=== PATIENT | male | born 1950 | race Caucasian/White ===

== ENCOUNTER 2023-05-02 21:01 | Inpatient (IN) | payer OTHER, SELFPAY ==
[2023-05-02] VITALS (8 sets, daily range): BP systolic 87–156; BP diastolic 57–105; BMI 22.6; BMI 21.5
[2023-05-02] MEDS: VENTOLIN NEBULES 15 MG INH (17:42)
--- NOTE | 2023-05-02 17:55 | ED.GENMED ---
History of Present Illness
General
Chief Complaint: Breathing Problem
Source: patient
Exam Limitations: none
Time Seen by Provider: 05/02/23 17:24
Nursing documentation reviewed up to this point in time: agreed with
Travel History
Have you had any contact with someone who has COVID-19?: No
Do you have any symptoms of coronavirus? Fever > 100 degrees, chills, cough, shortness of breath, sore throat, loss of taste or smell, muscle aches, or headache?: No
History of Present Illness
History of Present Illness:
Patient is a 72-year-old man with past medical history of COPD who comes in with increased work of breathing and shortness of breath. Patient complains of chest heaviness. He denies leg pain and leg swelling. Patient reports symptoms started
today.
Past History
Past History
ED Past Medical History: CAD, COPD, HTN, Seizures, Other (TIA) and Other (alchoholism has been to [facility] vent-dependent respiratory failure, pneumonia, cirrhosis, pancreatitis, seizures, cirrhosis,cardiomyopathy GI bleed, ambulatory
dysfunction, osteoarthritis, fracture ribs, eczema, impaired vision, anemia); Negative Hypercholesterolemia
ED Past Surgical History: Cardiac (Cardiac stent) and Other (tracheostomy, gastrostomy, bilateral hernia surgery, left middle finger surgery)
Social History
Tobacco: Smoker
Alcohol: Chronic alcoholic
Drug: None
Personal:
Living: with family (lives with daughter)
Employment: Retired
Family History
Family History: CAD
Review of Systems
Review of Systems
Allergies reviewed?: Yes
Other source history: family
All Other Systems: ROS reviewed and negative except as documented in HPI and ROS
Constitutional: Reports no symptoms
EENT: Reports no symptoms
Respiratory: Reports trouble breathing
Cardiac: Reports chest pain
ABD/GI: Reports no symptoms
: Reports no symptoms
Musculoskeletal: Reports no symptoms
Skin: Reports no symptoms
Neurological: Reports no symptoms
Endocrine: Reports no symptoms
Hematologic/Lymphatic: Reports no symptoms
Psychiatric: Reports no symptoms
Phy Exam
Physical Exam
Physical Exam:
Physical Exam
General: Patient appears tachypneic. Speaks in phrases
Neck: supple. no meningeal signs. normal psoterior pharynx
Heart: s1/s2 regular rate and rhythm,
Lungs: Tachypneic. Diminished breath sounds. Wheezing
Abdomen: normal bowel sounds. not tender. no CVAT
Neuro: alert and oriented. no focal neurological deficits
Skin: no rash
Psychiatric: well kept. interactive and cooperative
Extremities: no edema. no calf tenderness. negative homans. good distal pulses
Scores
Heart Failure Risk
Heart Failure Risk Score: Not Applicable
Course
Orders/Labs/Results
Orders:
Orders
05/02/23 Dinner
Cholesterol Lowering
At Your Request: Limited Participation
Cholesterol Lowering: Sodium, 2 Gram
05/02/23 17:24
CR Chest Portable - 1 View Urgent
Comment:
Reason For Exam: SOB
Reason Study Needs to be Portable: Patient Unstable
05/02/23 17:25
Electrocardiogram (*1) Urgent
Reason for Study: Shortness of Breath
EKG- Treatment ONCE
Albuterol Sulfate [Ventolin Nebules] 15 mg INH R NOW STA
05/02/23 17:48
Basic Metabolic Panel Urgent
COVID-19 Antigen Urgent
Source: Nasal Swab
Complete Blood Count/No Diff Urgent
Influenza A+B Rapid Molecular Urgent
BON Source: Nasal Swab
Specimen Description:
05/02/23 18:30
NT-proBNP Urgent
Troponin I Urgent
05/02/23 20:46
Admit/Transfer Patient As Directed
Co-Sign Provider:
Level of Care: Inpatient admission
Assign to:: IMU- Intermediate Care
Physician / Group: eileen
Diagnosis: chf exacerbation
Reason for Hospitalization: chf exacerbation
Expected length of stay greater than two midnights?: Yes
ELOS- Estimated Length of Stay in days: 2
I certify the patient meets the requirements for IP care: Yes
05/02/23 20:47
Code Status As Directed
Resuscitation Status: Full Code
05/02/23 20:48
Furosemide [Lasix] 40 mg IV DAILY STA
05/02/23 21:44
Troponin I Q6H
Ipratropium/Albuterol Sulfate [Duoneb] 3 ml INH R Q4HPRN PRN
Lorazepam [Ativan] 1 mg PO BIDPRN PRN
05/02/23 21:44
Echo 2D MMode Color/Doppler Routine
Reason for Study: chf
HF DIETARY CONSULT Routine
HF EDUCATOR CONSULT Routine
Comment:
Activity As Directed
Activity Level: As Tolerated
Intake/ Output As Directed
Frequency: q12h
Patient Education As Directed
Type: CHF folder
Comment: give on admission. Document in Interdisciplinary Education record
Records Request [Obtain Records] As Directed
Dates of Information to be Released: progreess note from Dr. Kennedy [place]
Type of Information Requested: Progress Notes
Sleep Apnea Assessment by RN As Directed
Comment:
Physician Instructions:
Vital Signs As Directed
Frequency: Other
Additional Instructions:: Q12 or per unit guidelines if more frequent.
Weight As Directed
Frequency: Daily
Type of Scale: Standing Scale
Comment: Daily morning weight. If unable to stand, use balanced bed scale.
Weight As Directed
Frequency: Once
Type of Scale: Standing Scale
Comment: Upon Admission. If unable to stand, use balanced bed scale.
Pulse Ox/cont/shift [RESP] Routine
Quantity: 1
Special Instructions: Daily pulse oximetry at rest. If greater than 92% at rest also obtain pulse oximetry
while ambulating as tolerated.
DX Deep Vein Thrombosis Video Routine
05/02/23 22:00
Cetirizine HCl [Zyrtec] 10 mg PO HS
05/03/23 03:44
Troponin I Q6H
05/03/23 06:00
Complete Blood Count/With Diff IN AM
Comprehensive Metabolic Panel IN AM
05/03/23 08:00
Aspirin Low Dose EC [Aspir Low (Enteric Coated)] 81 mg PO DAILY
Atorvastatin [Lipitor] 20 mg PO DAILY
Carvedilol [Coreg] 6.25 mg PO BID
Heparin 5,000 units SC Q12
Valsartan [Diovan] 40 mg PO DAILY
fexofenadine 180 mg PO DAILY
05/03/23 09:44
Troponin I Q6H
05/03/23 15:44
Troponin I Q6H
05/03/23 20:00
fluticasone furoate-vilanterol [Breo Ellipta] 1 inh INH R QPM
05/05/23 11:00
DC Protocol for Telemetry ONCE
Abnormal Lab Results
05/02/23 05/02/23
17:48 18:30
RBC 4.26 L 10^6/uL
(4.70-6.10)
MCV 97.7 H fL
(80.0-94.0)
MCH 32.9 H pg
(27.0-31.0)
MPV 10.6 H fL
(7.4-10.4)
Chloride 108 H mmol/L
(98-107)
Glucose 133 H mg/dl
(70-99)
Troponin I 0.090 H* ng/ml
05/02/23 17:48
05/02/23 17:48
Vital Signs
Initial and Last Documented VS:
Initial Vital Signs
Pulse Resp BP Pulse Ox
150 19 149/68 100
05/02/23 17:29 05/02/23 17:29 05/02/23 17:29 05/02/23 17:29
Last Documented Vital Signs
Temp Pulse Resp BP Pulse Ox
97.6 F 78 19 131/57 97
05/02/23 23:00 05/02/23 22:00 05/02/23 22:00 05/02/23 22:00 05/02/23 22:40
MDM/Problems Addressed
Differential Diagnosis Includes:
COPD exacerbation, pneumonia, CHF, acute coronary syndrome
MDM/Problems Addressed:
Patient presents with acute shortness of breath and chest pain
Chronic conditions affecting care: COPD
Acute Exacerbation and/or Progression of Chronic Illness:
Patient likely presents with acute exacerbation of chronic COPD
Acute Exacerbation and/or Progression of Chronic Illness: COPD
*Radiology
Radiology exam reviewed: preliminary read by ED provider (Increased lung markings bilaterally. Chest x-ray reviewed by me) and radiology read reviewed
*Pulse Oximetry
Patient hypoxic: yes
*EKG
Interpreted by ED Provider?: Yes
Interpretation: abnormal
Comparison EKG: changes noted
Rate: normal
Rhythm: sinus, PAC's and PVC's
[place]: normal axis
Interval: normal interval
QRS Pattern: left bundle branch block
Ischemia: non-specific ST changes
*Product Director Interpretation
Rate: normal
Interpretation: normal
Rhythm: sinus
*Critical Care Note
Total Time (30-74mins, 75-104mins- exclusive of procedures): 45 minutes
comment:
45 minutes critical care given to the patient including frequent reassessments of his respiratory effort, reviewing his prior EKGs, speaking to his daughter, reviewing his chest x-ray and blood work
Data Reviewed
Review of Other/Old Records Reveals: Testing (Cardiac catheterization reviewed from 2017 when patient was noted to have a left bundle branch block)
Source: patient and family (Daughter)
Prescriptions/Medications Considered But Not Given:
Patient given 1 hour albuterol treatment for acute respiratory distress and wheezing
Patient Management
Discussion with other providers: Hospitalist
Escalation/DeEscalation of care consider admission/obs:
Given patient's acute hypoxia and respiratory distress, patient will be admitted
ED Attending Note
-
Portions of this chart may have been created with voice recognition software.� Occasional wrong word or��sound alike� substitutions may have occurred due to the inherent limitations of voice recognition software.
Discharge Plan
Departure
Patient Disposition: Admit
Admit to: Telemetry
Presentation/result/management discussed w/ accepting MD/DO: Hospitalist
Patient with high blood pressure during this ER visit?: Yes
Condition: Fair
Covid-19: Negative COVID-19
Discharge Problem:
Acute exacerbation of chronic obstructive pulmonary disease, Acute hypoxic respiratory failure, Elevated troponin
Interventions
Interventions:
*Risk Screen - Suicide Last Done: 05/02/23 22:05
*General Assessment Last Done: 05/02/23 17:30
*Neglect/Abuse Screening Last Done: 05/02/23 17:30
*ED COVID-19 Vaccine History Last Done: 05/02/23 22:05
*Nursing Disposition Last Done: 05/02/23 22:12
ED- Cardiac Assessment Last Done: 05/02/23 17:42
ED- Pulmonary Assessment Last Done: 05/02/23 17:35
Discharge Date and Time
Discharge Date/Time: 05/02/23 22:13
[2023-05-02 18:07] LABS: Hematocrit 41.6 % (39.0-52.0); Mean Corp Hgb Conc. 33.7 g/dL (33.0-37.0); Mean Corpuscular Hgb 32.9 pg (27.0-31.0); Mean Corpuscular Volume 97.7 fL (80.0-94.0); Mean Platelet Volume 10.6 fL (7.4-10.4); Platelet Count 270 10^3/uL (130-400); Red Blood Cell Count 4.26 10^6/uL (4.70-6.10); Red Cell Dist. Width 12.9 % (11.5-14.5); White Blood Cell Count 8.7 10^3/uL (4.8-10.8)
[2023-05-02 18:23] LABS: Blood Urea Nitrogen 16 mg/dl (9-20); Calcium 8.6 mg/dl (8.4-10.2); Carbon Dioxide 23 mmol/L (22-30); Chloride 108 mmol/L (98-107); Estimated Creatinine Clearance 96 ml/min; Glucose 133 mg/dl (70-99); Sodium 140 mmol/L (135-145); eGFR > 60.00
[2023-05-02 18:48] LABS: COVID-19 Antigen Negative (Negative)
[2023-05-02 19:05] LABS: NT-proBNP 6220 pg/ml
--- NOTE | 2023-05-02 20:55 | HPS.HSE ---
Family Physician
-
Family Physician: Gabbi Sánchez
Chief Complaint
-
shortness of breath
History of Present Illness
72-year-old male with past medical history of COPD, history of respiratory failure status post prior trach/PEG tube, alcohol use disorder, cirrhosis, pancreatitis, CAD with history of remote stent, bradycardia, hypertension, diabetes, psoriasis
presenting with shortness of breath which started over the past day. Shortness of breath occurs with exertion. He denies any cough or fever. He gets chest pain with ambulation. Denies any chest pain currently. Denies any dizziness. He has
lower extreme edema which is stable which she attributes to psoriasis. Denies any weight changes recently.
Patient has been having severe fatigue for the past month. He sees carrier blower at [facility] and was apparently noted to be bradycardic heart rate down to 30s to 40s only associated with fatigue and no other symptoms. He is scheduled to have a
pacemaker placed next Friday by buddhist monk Dr. Cruz. His normal carrier blower is Dr. Kennedy. He was recently started on losartan for elevated blood pressure.
He is a former smoker and alcohol drinker but no longer does either.
Medical History
Past Medical History
Past Medical History: Reports Other (COPD, history of respiratory failure status post prior trach/PEG tube, alcohol use disorder, cirrhosis, pancreatitis, CAD with history of remote stent, bradycardia, hypertension, diabetes, psoriasis)
Past Surgical History: Reports None
Social History
Tobacco: Former Smoker
Alcohol: Former
Drug: None
Family History
Family History: Not pertinent
Allergies / Home Medications
Allergies reflects when Allergies were last updated in [facility].
Home Medications with original date entered in [facility]
Allergy/Medication List:
Allergies
Allergy/AdvReac Type Severity Reaction Status Date / Time
Environmental Allergy Stuffy Uncoded 05/02/23 17:29
nose,
runny,sneezing,
sinus
pressure
Home Medications
albuterol sulfate 90 mcg/actuation aerosol inhaler (Ventolin HFA) 2 puff inhalation R Q6 PRN sob/wheezing 07/05/16
Skyrizi 1 dose SC [id number] 05/02/23
aspirin 81 mg tablet,delayed release 81 mg PO DAILY 05/02/23
atorvastatin 20 mg tablet 20 mg PO DAILY 05/02/23
carvedilol 6.25 mg tablet 6.25 mg PO BID 05/02/23
cetirizine 10 mg tablet (Zyrtec) 10 mg PO HS 05/02/23
fexofenadine 180 mg tablet 180 mg PO DAILY 05/02/23
fluticasone furoate 100 mcg-vilanterol 25 mcg/dose inhalation powder (Breo Ellipta) 1 inh inhalation R QPM 05/02/23
ipratropium 0.5 mg-albuterol 3 mg (2.5 mg base)/3 mL nebulization soln 3 ml inhalation R QID PRN sob/wheezing 05/02/23
lorazepam 1 mg tablet 1 mg PO BID PRN anxiety 05/02/23
valsartan 40 mg tablet 40 mg PO DAILY 05/02/23
Review of Systems
-
History Source: Patient
A 12 point ROS was completed and negative except as noted: Yes
Constitutional: Reports No Symptoms
EENT: Reports No Symptoms
Respiratory: Reports See HPI
Cardiac: Reports See HPI
Abdomen/GI: Reports No Symptoms
: Reports No Symptoms
Musculoskeletal: Reports No Symptoms
Skin: Reports No Symptoms
Neurological: Reports No Symptoms
Endocrine: Reports No Symptoms
Hematologic/Lymphatic: Reports No Symptoms
Psych: Reports No Symptoms
Physical Exam
Vital Signs
Vital Signs
Temp Pulse Resp BP Pulse Ox
97.4 F 127 23 127/105 89
05/02/23 17:33 05/02/23 19:15 05/02/23 19:15 05/02/23 19:00 05/02/23 19:15
Physical Exam
General: Well Developed, Well Nourished and No Apparent Distress
HEENT: NormoCephalic, Moist mucous membranes and Atraumatic
Respiratory: Rales
Cardiac: S1/S2 and Regular Rhythm; No Murmur or Rub
GI: Soft, Non Tender, Non Distended and Normal Bowel Sounds; No Organomegaly
Rectal: Deferred by Provider
Musculoskeletal: No Clubbing, No Cyanosis and No Edema
Skin: No Rash
Neuro: Nonfocal/grossly intact
Laboratory Results
-
05/02/23 17:48
05/02/23 17:48
Laboratory Results
Total Bilirubin Cancelled 05/02/23 17:48
AST Cancelled 05/02/23 17:48
ALT Cancelled 05/02/23 17:48
Alkaline Phosphatase Cancelled 05/02/23 17:48
Troponin I 0.090 ng/ml H* 05/02/23 18:30
Data Reviewed
-
Lab Data: Labs Reviewed by me
Old Records: Reviewed
Impression/Plan
-
IMPRESSION:
PLAN:
# Acute hypoxic respiratory failure secondary to acute CHF exacerbation
-Crackles on examination without any wheezing
-Patient currently on mid flow saturating 100%
-Chest x-ray shows severe chronic lung disease, evidence of COPD/emphysema, slight increase in pleural parenchymal changes in the right lung base likely chronic, superimposed pneumonic process cannot be completely excluded
-Chronic BNP of 6000
-EKG shows sinus rhythm with premature atrial complexes and bigeminy pattern with left bundle branch block
-Check I's and O's, daily weights
-40 IV Lasix daily
-Continue Coreg
-Check echo
-Cardiology consulted
-Obtain records from [facility] cardiology
# Non-CO troponin elevation
-Troponin 0.09
-No chest pain currently but stable angina symptoms
-Trend troponins
COPD
-Not in acute exacerbation
-Continue DuoNebs every 6 hours as needed
-Continue Breo
History of respiratory failure status post prior trach/PEG tube
CAD with history of remote stent
-Continue aspirin, statin
Essential hypertension
-Continue valsartan
Type 2 diabetes
-Not on medication
Psoriasis
-On Skyrizi
Alcoholic cirrhosis
Alcohol use disorder
-No longer drinks alcohol
Former smoker
History of pancreatitis
Prior history of falls
Anxiety
-Continue Ativan
Allergies
-Continue cetirizine/fexofenadine
Full code
DVT prophylaxis�heparin
Cardiac diet
[2023-05-02] MEDS: LASIX 40 MG IV (21:02)
[2023-05-02] MEDS: ATIVAN 1 MG PO (22:18)
[2023-05-02] MEDS: ZYRTEC 10 MG PO (22:18)
--- NOTE | 2023-05-02 22:31 | PTCARENOTE ---
Received pt from ED via stretcher. AAOx3. Pt arrived on 8 L MF satting at 98%. Pt currently on 6L MF with pulse ox at 98%. Lungs diminished b/l. Pt has a hx or psoriasis with patches scattered all over legs and back; Flaky skin. VSS at this
time. Pt uses cane recently for stability since becoming bradycardic and SOB. Educated pt on the importance of calling staff for help if bathroom needed. pt states he understands. Daughter at bedside. Pt resting comfortably in bed with call
gutierrez in reach.
[2023-05-02] MEDS: DUONEB 3 ML INH (22:39)
[2023-05-03] VITALS (18 sets, daily range): BP systolic 99–164; BP diastolic 53–112; BMI 21.5
--- NOTE | 2023-05-03 00:51 | PTCARENOTE ---
Pt was c/o 5/10 chest pain. Notified TEST MAN. EKG ordered and obtained. BP 151/93 HR 136 Pulse ox 97% on 6L MF. No new orders at this time.
[2023-05-03 01:01] LABS: Troponin I 0.338 ng/ml
[2023-05-03] MEDS: DUONEB 3 ML INH ×3 (02:07→20:10)
[2023-05-03] MEDS: MORPHINE SULFATE 2 MG IV (03:55)
--- NOTE | 2023-05-03 04:17 | PTCARENOTE ---
Pt still c/o chest pain 5/10 with increasingly labored breathing. Last breathing treatment was at 02:00. BP 164/102 HR consistently in the 130s. Notified RUBBING BED OPERATOR. Morphine 2mg IV order placed and administered (see MAY).
[2023-05-03 06:11] LABS: % Basophils 0.2 % (0-2); % Immature Granulocytes 0.3 % (0-0.5); % Lymphocytes 4.6 % (20.5-51.1); % Monocytes 2.2 % (1.7-9.3); % Neutrophils 92.7 % (42.2-75.2); Absolute Lymphocytes 0.3 10^3/uL (1.2-3.4); Absolute Monocytes 0.1 10^3/uL (0.1-0.6); Absolute Neutrophils 5.9 10^3/uL (1.4-6.5); Hematocrit 47.2 % (39.0-52.0); Mean Corp Hgb Conc. 31.8 g/dL (33.0-37.0); Mean Corpuscular Hgb 32.4 pg (27.0-31.0); Mean Corpuscular Volume 101.9 fL (80.0-94.0); Mean Platelet Volume 10.6 fL (7.4-10.4); Nucleated Red Blood Cells % 0 % (-); Platelet Count 265 10^3/uL (130-400); Red Blood Cell Count 4.63 10^6/uL (4.70-6.10); Red Cell Dist. Width 12.7 % (11.5-14.5); White Blood Cell Count 6.4 10^3/uL (4.8-10.8)
[2023-05-03 06:47] LABS: ALT (SGPT) 23 U/L (0-50); AST (SGOT) 29 U/L (17-59); Albumin 3.7 g/dl (3.5-5.0); Alkaline Phosphatase 96 U/L (38-126); Blood Urea Nitrogen 23 mg/dl (9-20); Carbon Dioxide 24 mmol/L (22-30); Chloride 102 mmol/L (98-107); Estimated Creatinine Clearance 64 ml/min; Glucose 210 mg/dl (70-99); Potassium 5.1 mmol/L (3.5-5.1); Sodium 141 mmol/L (135-145); Total Bilirubin 0.8 mg/dl (0.2-1.3); Total Protein 7.1 g/dl (6.3-8.2); eGFR > 60.00
--- NOTE | 2023-05-03 07:33 | W.PN.HOSP.TC ---
Today's Communication/Plan
-
EKG now
Cardiology consult
Trend troponins
Assessment / Plan
Assessment / Plan
Gen-awake but not alert, NAD
HEENT-NC, AT, anicteric, clear oral mm
Neck-supple
CV-reg, no M, +S1/S2
Lungs-mild bilateral expiratory wheezing
Abd-soft, NT, ND
Ext-no edema
Musculoskeletal-no cyanosis, clubbing
Skin-excoriations throughout extremities due to scratching, dry skin.
Neuro-grossly non-focal
Psych-calm, cooperative
Acute hypoxic respiratory failure -differential diagnosis includes acute heart failure exacerbation, COPD exacerbation, etc. Currently on 6 L nasal cannula oxygen, wean down as able. Chest x-ray shows severe chronic lung disease, poor inspiratory
effort. Changes of COPD.
Acute heart failure exacerbation -unknown type. Awaiting echocardiogram. [facility] is located in [facility]. Consult cardiology. BNP noted to be 6220. Given 1 dose of IV Lasix last night. Does not appear to be on diuretics at
home.
COPD with possible exacerbation -mild wheezing on exam. States he does have a cough but does not notice any significant changes in cough. Continue inhalers. Give a dose of steroids.
Troponin elevation -unclear if true ACS versus non-UT troponin elevation. Last troponin 0.42, trending up. Will follow troponins. Cardiology consulted. Check EKG this morning.
History of respiratory failure status post prior trach/PEG tube
CAD with history of remote stent -Continue aspirin, statin
Essential hypertension -Continue valsartan
DM2 with hyperglycemia -not on meds. Glucose 210 this morning. Check hemoglobin A1c. Use SSI for now.
Psoriasis -On Skyrizi
Alcoholic cirrhosis
Alcohol use disorder -No longer drinks alcohol
Former smoker
History of pancreatitis
Prior history of falls
Anxiety -Continue Ativan
Allergies -Continue cetirizine/fexofenadine
Full code
Anticipated Discharge: > 48 hours
Subjective/Interval History
-
Date of Service: May 03, 2023
Patient seen and examined. Currently denies chest pain. Reportedly had chest pain during the night. Denies shortness of breath. Was sleeping when I walked in the room.
Objective Data
-
Labs:
Laboratory Results
05/03/23
05:52
WBC 6.4
Hgb 15.0
Hct 47.2
Plt Count 265
Sodium 141
Potassium 5.1
Chloride 102
Carbon Dioxide 24
BUN 23 H
Creatinine 1.0
Glucose 210 H
Calcium 9.0
Total Bilirubin 0.8
AST 29
ALT 23
Alkaline Phosphatase 96
Vital Signs:
Vital Signs
Temp Pulse Resp BP Pulse Ox
97.8 F 127 23 148/98 97
05/03/23 07:16 05/03/23 06:02 05/03/23 06:02 05/03/23 06:02 05/03/23 06:02
I&O
05/02/23 05/03/23 05/04/23
06:59 06:59 06:59
Intake Total 480 / 480
Output Total 700 / 700
Balance -220 / -220
Review of Systems
-
History Source: Patient
All other systems: Reviewed and negative
[2023-05-03] MEDS: ASPIR LOW (ENTERIC COATED) 81 MG PO (07:48)
[2023-05-03] MEDS: DIOVAN 40 MG PO (07:48)
[2023-05-03] MEDS: COREG 6.25 MG PO ×2 (07:48→20:45)
[2023-05-03] MEDS: LIPITOR 20 MG PO (07:48)
[2023-05-03] MEDS: HEPARIN SC ×2 (07:49→08:10)
[2023-05-03 08:07] LABS: Glucose - Point of Care 139 mg/dl (70-99)
[2023-05-03] MEDS: DECADRON 8 MG IV (08:13)
[2023-05-03] MEDS: ATIVAN 1 MG PO ×2 (08:34→20:52)
[2023-05-03] MEDS: SYMBICORT 160/4.5 MCG INHALER INH ×3 (08:42→20:15)
--- NOTE | 2023-05-03 09:54 | CON.CAR ---
Consultation
Consultation Request
Date/Time Consultation Requested: 05/03/2023 7: 00
Date/Time Consultation Performed: 05/03/2023 7: 30
Requesting Provider: Odilia
Performing Provider: Jose
Reason for Consultation: CHF
Medical History
-
Chief Complaint: Shortness of breath
History of Present Illness:
Anatoly has a history of COPD, CAD status post RCA stent in 2012, rate related left bundle branch block with sick sinus syndrome and prior Linq implant, COPD, alcohol abuse, respiratory failure with prior tracheostomy and PEG tube, cirrhosis,
pancreatitis, bradycardia with scheduled pacer at [facility] on 05/06/2023, hypertension, diabetes, psoriasis. He was visiting his daughter in [place]. He had increasing shortness of breath and was brought to the ER and is admitted for
acute diastolic CHF. Of note he has had bradycardia recently with heart rates in the 30s to 40s with fatigue and was scheduled for a pacer by Dr. Cruz at [facility] on 05/06/23. He was given IV Lasix. He feels better. He remains on
oxygen. He claims she will sign out AMA later today
Past Medical History
Past Medical History: Other (See HPI, history of tracheostomy in 2013 which has been removed, history of sick sinus syndrome with fall versus syncope in the past with 4 to 5-second pauses and had declined pacemaker in 2013. Currently scheduled for
pacemaker on 05/06/2023 at [facility], history of TIA in 2011, history of javed)
Past Surgical History: Other (Tracheostomy, PEG tube, stent, Linq implant, gastrostomy, bilateral hernia surgery, left middle finger surgery)
Social History
Tobacco: Former Smoker
Alcohol: Former
Drug: None
Personal:
Living: With Family
Employment: Retired
Family History
Family History: Other (There is family history of CAD)
Allergies / Home Medications
Allergy/AdvReac Type Severity Reaction Status Date / Time
Environmental Allergy Stuffy Uncoded 05/02/23 17:29
nose,
runny,sneezing,
sinus
pressure
Medication Instructions Recorded Confirmed Type
albuterol sulfate 90 mcg/actuation 2 puff inhalation R Q6 PRN 07/05/16 05/02/23 History
aerosol inhaler (Ventolin HFA) sob/wheezing
Skyrizi 1 dose SC [id number] 05/02/23 05/02/23 History
aspirin 81 mg tablet,delayed 81 mg PO DAILY 05/02/23 05/02/23 History
release
atorvastatin 20 mg tablet 20 mg PO DAILY 05/02/23 05/02/23 History
carvedilol 6.25 mg tablet 6.25 mg PO BID 05/02/23 05/02/23 History
cetirizine 10 mg tablet (Zyrtec) 10 mg PO HS 05/02/23 05/02/23 History
fexofenadine 180 mg tablet 180 mg PO DAILY 05/02/23 05/02/23 History
fluticasone furoate 100 1 inh inhalation R QPM 05/02/23 05/02/23 History
mcg-vilanterol 25 mcg/dose
inhalation powder (Breo Ellipta)
ipratropium 0.5 mg-albuterol 3 mg 3 ml inhalation R QID PRN 05/02/23 05/02/23 History
(2.5 mg base)/3 mL nebulization sob/wheezing
soln
lorazepam 1 mg tablet 1 mg PO BID PRN anxiety 05/02/23 05/02/23 History
valsartan 40 mg tablet 40 mg PO DAILY 05/02/23 05/02/23 History
Review of Systems
-
History Source: Patient
All other systems: Negative unless noted
Constitutional: Fatigue
EENT: No Symptoms
Respiratory: Trouble Breathing
Cardiac: No Symptoms
Abdomen/GI: No Symptoms
: No Symptoms
Musculoskeletal: No Symptoms
Skin: No Symptoms
Neurological: No Symptoms
Endocrine: No Symptoms
Hematologic/Lymphatic: No Symptoms
Physical Exam
Vital Signs
Temp Pulse Resp BP Pulse Ox
97.8 F 118 21 141/91 97
05/03/23 07:16 05/03/23 08:00 05/03/23 08:00 05/03/23 08:00 05/03/23 09:16
Lab Results
05/03/23 05:52
05/03/23 05:52
Troponin I 0.420 ng/ml H* 05/03/23 05:52
Dqu-E-Dswowirvugq Pept 6220 pg/ml 05/02/23 18:30
General: Appears chronically ill
Neck: Supple, no JVD, HJR, carotids +2 B/L, no bruits bilaterally.
Heart: Non displaced PMI, RRR, no murmurs, No S3, S4, no rubs.
Lungs: Scattered rhonchi and wheezes
Abdomen: Normal bowel sounds, soft, non-tender, non-distended.
Extremities: No clubbing, cyanosis or edema bilaterally.
Neuro: Grossly nonfocal, awake, alert and oriented x3.
Impression / Plan
-
Impression:
Acute diastolic CHF
Non-ME troponin elevation 0.420
History of sick sinus syndrome with pauses in the past on Linq monitor/scheduled for pacer at [facility] on 05/06/2023
History of COPD
History of respiratory failure status post tracheostomy
History of RCA stent in 2012
Left bundle branch block
Hypertension
Diabetes
Psoriasis
History of pancreatitis
History of seizures
History of GI bleed
Alcoholic cirrhosis
Former alcohol abuse
Catheterization May 2012: Expedition stent to mid RCA, 30% LAD, 40% OM 2
Plan:
He presents with acute diastolic CHF
He is normally followed at [facility] and is scheduled for a pacer in 05/06/2023 for severe bradycardia
Need records from [facility] specifically echocardiogram
Will continue to treat for CHF with IV Lasix although cannot exclude his COPD/pneumonia component
Of note he is tachycardic at present and is scheduled for a pacer but has a known history of sick sinus syndrome and will need to continue to follow on telemetry
Continue Coreg 6.25 mg p.o. twice daily and would not be aggressive with tachycardia
Amazingly does not appear to have a history of atrial fibrillation
Continue to track troponins
Patient claims she will sign out AMA
Check echo if he is still here on Friday 05/05
Get records from [facility] as well
Data Reviewed
-
EKG: Tracing Personally Visualized and interpreted
Radiology: Report Reviewed by me
Medical Tests (Nuc Med, Echo etc): Report Reviewed by me
Labs: Labs Reviewed by me
Old Records: Reviewed
[2023-05-03] MEDS: LASIX IV ×2 (11:16→11:20)
[2023-05-03 12:13] LABS: Glucose - Point of Care 148 mg/dl (70-99)
--- NOTE | 2023-05-03 12:14 | PTCARENOTE ---
Received pt tachypneic w/ exp wheeze on 4L NC. Pt denies CP. 8mg IV Decadron given w/ good result. Dr Hartley at bedside to assess. EKG obtained, cardiology consult placed. Psoriasis dry skin on arms and legs noted, barrier ointment applied, RLE
scratched open by pt, adaptic and ABD w/ Spandage applied. Pt is AO but forgetful, assisted OOB to chair w/ generalized weakness, chair alarm in place. Pt using urinal. Pt mostly cooperative but anxious and agitated at times, threatening to leave
AMA tomorrow. Pt requested and given 1mg PO Ativan. Daughter at bedside, assisting w/ explanations of medications, procedures and importance of staying.
[2023-05-03] MEDS: NOVOLOG FLEXPEN-LOW RESISTANCE SC ×2 (12:23→17:22)
[2023-05-03 16:49] LABS: Glucose - Point of Care 152 mg/dl (70-99)
[2023-05-03 18:59] LABS: Glucose - Point of Care 146 mg/dl (70-99)
[2023-05-03 20:08] LABS: Troponin I 0.606 ng/ml
[2023-05-03] MEDS: HEPARIN 5000 UNITS SC (20:46)
[2023-05-03] MEDS: ZYRTEC 10 MG PO (20:46)
[2023-05-03] MEDS: LASIX 20 MG IV (21:33)
[2023-05-03 22:09] LABS: Glucose - Point of Care 152 mg/dl (70-99)
[2023-05-04] VITALS (15 sets, daily range): BP systolic 90–132; BP diastolic 54–100; PULSE 78–86; O2SAT 93–98; BMI 21.4
[2023-05-04] MEDS: DUONEB 3 ML INH ×3 (00:04→20:31)
[2023-05-04 02:14] LABS: Troponin I 0.537 ng/ml
--- NOTE | 2023-05-04 05:20 | PTCARENOTE ---
received pt at change of shift. Pt lungs had b/l crackles after receiving duoneb treatment. Earlier in the day pt had refused his lasix dose as well as heparin dose (see MAR). Pt now agreeable to both. Notified DIRECTOR OF REHABILITATIVE SERVICES to order a dose of lasix x1
for the evening. 20 mg IV lasix ordered and administered (see MAR). Pt comfortable throughout the night. Resting in bed with call gutierrez in reach.
[2023-05-04 05:25] LABS: Blood Urea Nitrogen 33 mg/dl (9-20); Calcium 8.3 mg/dl (8.4-10.2); Carbon Dioxide 32 mmol/L (22-30); Chloride 103 mmol/L (98-107); Estimated Creatinine Clearance 71 ml/min; Glucose 130 mg/dl (70-99); Potassium 4.5 mmol/L (3.5-5.1); Sodium 137 mmol/L (135-145); eGFR > 60.00
[2023-05-04] MEDS: SYMBICORT 160/4.5 MCG INHALER INH ×2 (07:22→20:34)
--- NOTE | 2023-05-04 07:39 | W.PN.HOSP.TC ---
Today's Communication/Plan
-
Continue diuresis
Check echocardiogram
Await records
Assessment / Plan
Assessment / Plan
Gen-awake, NAD
HEENT-NC, AT, anicteric, clear oral mm
Neck-supple
CV-reg, no M, +S1/S2
Lungs-decreased breath sounds bilaterally.
Abd-soft, NT, ND
Ext-no edema
Musculoskeletal-no cyanosis, clubbing
Skin-excoriations throughout extremities due to scratching, dry skin.
Neuro-grossly non-focal
Psych-calm, cooperative
Acute hypoxic respiratory failure -differential diagnosis includes acute heart failure exacerbation, COPD exacerbation, etc. Currently on 2 L nasal cannula oxygen, wean down as able. Chest x-ray shows severe chronic lung disease, poor inspiratory
effort. Changes of COPD.
Acute heart failure preserved EF exacerbation - Awaiting echocardiogram. [facility] is located in [facility]. Continue IV Lasix per cardiology. Await records.
Sick sinus syndrome -scheduled for pacemaker at [facility] this Friday.
COPD with possible exacerbation -wheezing resolved. Given a dose of Decadron yesterday. States he does have a cough but does not notice any significant changes in cough. Continue inhalers.
Troponin elevation -suspect non-[place] troponin elevation due to heart failure exacerbation. Troponin has peaked.
History of respiratory failure status post prior trach/PEG tube
CAD with history of remote stent -Continue aspirin, statin
Essential hypertension -Continue valsartan
DM2 with hyperglycemia -not on meds. Glucose 210 this morning. Check hemoglobin A1c. Use SSI for now.
Psoriasis -On Skyrizi
Alcoholic cirrhosis
Alcohol use disorder -No longer drinks alcohol
Former smoker
History of pancreatitis
Prior history of falls
Anxiety -Continue Ativan
Allergies -Continue cetirizine/fexofenadine
Full code
Daughter updated at bedside.
Anticipated Discharge: 24 - 48 hours
Subjective/Interval History
-
Date of Service: May 04, 2023
Patient seen and examined. No complaints. Daughter at the bedside.
Objective Data
-
Labs:
Laboratory Results
05/04/23
04:50
Sodium 137
Potassium 4.5
Chloride 103
Carbon Dioxide 32 H
BUN 33 H
Creatinine 0.9
Glucose 130 H
Calcium 8.3 L
Vital Signs:
Vital Signs
Temp Pulse Resp BP Pulse Ox
98.1 F 62 19 100/64 96
05/04/23 03:10 05/04/23 06:00 05/04/23 06:00 05/04/23 06:00 05/04/23 06:00
I&O
05/03/23 05/04/23 05/05/23
06:59 06:59 06:59
Intake Total 480 / 480 480 / 480
Output Total 700 / 700 675 / 675
Balance -220 / -220 -195 / -195
Review of Systems
-
History Source: Patient
All other systems: Reviewed and negative
[2023-05-04 07:50] LABS: Glucose - Point of Care 121 mg/dl (70-99)
[2023-05-04] MEDS: NOVOLOG FLEXPEN-LOW RESISTANCE SC ×2 (07:56→18:03)
[2023-05-04] MEDS: ATIVAN 1 MG PO ×2 (08:06→19:36)
[2023-05-04] MEDS: DIOVAN 40 MG PO (08:07)
[2023-05-04] MEDS: LASIX 40 MG IV (08:07)
[2023-05-04] MEDS: LIPITOR 20 MG PO (08:07)
[2023-05-04] MEDS: COREG 6.25 MG PO ×2 (08:07→19:32)
[2023-05-04] MEDS: ASPIR LOW (ENTERIC COATED) 81 MG PO (08:07)
[2023-05-04] MEDS: NON-FORMULARY ITEM 1 UNIT PO (08:08)
[2023-05-04] MEDS: HEPARIN 5000 UNITS SC ×2 (08:08→19:32)
[2023-05-04 08:33] LABS: Glycohemoglobin (HgbA1c) 5.8 % (4.0-5.6)
--- NOTE | 2023-05-04 10:47 | PTCARENOTE ---
Assumed care of pt from night RN, pt AAO, some forgetfulness noted at times. Anxious at times, prn Ativan administered with + effect reported. Pt continues on O2 at 2L, maintaining SPO2 >88%. prn nebs administered as needed. Daughter with patient
through morning. Appetite fair. Lasix 40mg administered as ordered. PT/OT eval & tx ordered. Will monitor through shift.
--- NOTE | 2023-05-04 11:22 | CM ---
CM reviewed medical chart. CM met with patient and daughter in room. Patient confirmed demographics. Patient lives with daughter in an apartment. Patient denied history of VN, SNF. Patient does have a cane, walker and nebulizer. Patient is active
with his PCP. Patient uses [facility] for medication services. CM pending PT recommendations for discharge needs.
PLAN: Pending clinical outcome and PT recommendations.
--- NOTE | 2023-05-04 11:55 | W.PN.CARDCBS ---
Today's Communication / Plan
-
Improved heart failure, unknown EF
Will try to facilitate transfer to [facility] per patient request though patient informed this may not be possible per third-green party payer guidelines
continue IV furosemide
Check echo in a.m.
If possible, defer further investigation and decision making regarding troponin to primary tank cleaning supervisor at [facility].
Impression / Plan
-
Impression:
Acute heart failure, EF unknown
Mobitz 2 second-degree heart block with left bundle branch block
Presumed non LA troponin elevation, 0.6
History of sick sinus syndrome with pauses in the past on [employer] monitor/scheduled for pacer at [facility] on 05/06/2023
History of COPD
History of respiratory failure status post tracheostomy
History of RCA stent in 2012
Left bundle branch block
Hypertension
Diabetes
Psoriasis
History of pancreatitis
History of seizures
History of GI bleed
Alcoholic cirrhosis
Former alcohol abuse
Catheterization May 2012: Expedition stent to mid RCA, 30% LAD, 40% OM 2
Plan:
He is clinically improved regarding acute heart failure, which I suspect is with preserved EF. Continue IV furosemide. Continue aspirin and carvedilol.
Presumably his troponin elevation is not an acute coronary syndrome though this remains to be determined.
Records from [facility] currently unavailable regarding recent evaluation.
Pacemaker implantation has been scheduled for Friday. Based on evidence of Mobitz 2 AV block with left bundle branch block here in the hospital, would be desirable to proceed with pacemaker implantation. He feels strongly he would like this at
[facility].
Will contact his tank cleaning supervisor in the a.m. to determine best strategy, need for invasive versus noninvasive ischemic evaluation, etc. would be happy to facilitate transfer if this is feasible.
Progress Note - [employer]
Subjective
Date of Service: May 04, 2023:
He feels much better. Pacemaker implantation at [facility] is scheduled for Friday. He requests transfer tomorrow.
No drug allergies
Outpatient meds albuterol, aspirin 81 mg a day, atorvastatin 20 mg a day, carvedilol 6.25 twice daily, Zyrtec, fexofenadine, Combivent, lorazepam, Skyrizi, valsartan 40 mg a day
Current medications: Reviewed, furosemide is 40 mg IV daily, he had not been on furosemide previous to this
PMH/PSH/SH/FH: Reviewed
Review of systems: Negative except as above
COPD and probable mild CHF on chest x-ray
EKG sinus tachycardia with left bundle branch block and intermittent Mobitz 2 second-degree heart block
Potassium 4.5, BUN and creatinine 33 and 0.9, troponin 0.537, peak was 0.606
Objective
Labs:
05/03/23 05:52
05/04/23 04:50
Labs
Hgb 15.0 g/dL (13.0-18.0) 05/03/23 05:52
Hct 47.2 % (39.0-52.0) 05/03/23 05:52
Plt Count 265 10^3/uL (130-400) 05/03/23 05:52
Sodium 137 mmol/L (135-145) 05/04/23 04:50
Potassium 4.5 mmol/L (3.5-5.1) 05/04/23 04:50
BUN 33 mg/dl (9-20) H 05/04/23 04:50
Creatinine 0.9 mg/dL (0.7-1.3) 05/04/23 04:50
Glucose 130 mg/dl (70-99) H 05/04/23 04:50
Troponins
05/02/23 05/02/23 05/03/23
17:48 18:30 00:22
Troponin I Cancelled 0.090 H* 0.338 H* D
05/03/23 05/03/23 05/03/23
05:52 12:00 19:39
Troponin I 0.420 H* Cancelled 0.606 H*
05/04/23
01:35
Troponin I 0.537 H*
Vital Signs and I&O:
Vital Signs
Temp Pulse Resp BP Pulse Ox
36.6 C 78 20 131/60 94
05/04/23 07:00 05/04/23 10:11 05/04/23 10:11 05/04/23 10:01 05/04/23 10:11
Vital Signs
Temp Pulse Resp BP Pulse Ox
36.6 C 78 20 131/60 94
05/04/23 07:00 05/04/23 10:11 05/04/23 10:11 05/04/23 10:01 05/04/23 10:11
Intake & Output
05/02/23 05/03/23 05/04/23 05/05/23
07:59 07:59 07:59 07:59
Intake Total 480 / 480 480 / 480 240 / 240
Output Total 700 / 700 1075 / 1075 800 / 800
Balance -220 / -220 -595 / -595 -560 / -560
Physical Exam
Physical Exam
131/60, pulse 90s,, occasionally 60s, 121/100 100/64, weight is 69.5 kg, if accurate down about 4 kg since admission, 0.5 kg since yesterday
Head neck exam unremarkable, still with some crackles in lungs, JVD okay, systolic murmur, abdomen relatively benign, mild edema
[2023-05-04 12:23] LABS: Glucose - Point of Care 169 mg/dl (70-99)
[2023-05-04] MEDS: NOVOLOG FLEXPEN-LOW RESISTANCE 1 UNITS SC (12:56)
[2023-05-04 18:12] LABS: Glucose - Point of Care 123 mg/dl (70-99)
[2023-05-04] MEDS: ZYRTEC 10 MG PO (21:08)
[2023-05-05] VITALS (14 sets, daily range): BP systolic 97–138; BP diastolic 53–96; BMI 21.7
--- NOTE | 2023-05-05 02:46 | PTCARENOTE ---
Pt AAOx3, forgetful at times. Pt c/o anxiety, administered PRN ativan with HS medications. Pt continues to c/o anxiety, requests additional dose of ativan, LUSTER APPLICATOR notified. No new orders at this time, pt observed resting in bed. VSS. Son at bedside
for comfort. Call gutierrez placed within reach
--- NOTE | 2023-05-05 06:12 | PTCARENOTE ---
Pt AAOx3, but forgetful. Upon arousal for AM labs, pt is pleasant, but states that he will be discharged today, inquires about his discharge paperwork. This RN reminded pt that discharge is not planned yet and care team will discuss POC with MDs
when they arrive this AM. Pt has hx psoriasis, exhibits dry flaky skin all over with several open spots from scratching. Small silicone border foam placed over skin tear on R knee to contain drainage and prevent further scratching. Call gutierrez placed
within reach. Pt has demonstrated appropriate use of call gutierrez throughout shift. Pt son remains at bedside.
[2023-05-05 06:37] LABS: Blood Urea Nitrogen 38 mg/dl (9-20); Carbon Dioxide 35 mmol/L (22-30); Chloride 97 mmol/L (98-107); Estimated Creatinine Clearance 72 ml/min; Glucose 103 mg/dl (70-99); Potassium 4.3 mmol/L (3.5-5.1); Sodium 136 mmol/L (135-145); eGFR > 60.00
[2023-05-05 07:26] LABS: Glucose - Point of Care 93 mg/dl (70-99)
[2023-05-05] MEDS: NOVOLOG FLEXPEN-LOW RESISTANCE SC ×3 (07:41→17:38)
[2023-05-05] MEDS: LIPITOR 20 MG PO (07:42)
[2023-05-05] MEDS: ATIVAN 1 MG PO ×2 (07:42→21:38)
[2023-05-05] MEDS: ASPIR LOW (ENTERIC COATED) 81 MG PO (07:42)
[2023-05-05] MEDS: COREG 6.25 MG PO ×2 (07:42→20:29)
[2023-05-05] MEDS: LASIX 40 MG IV (07:43)
[2023-05-05] MEDS: HEPARIN 5000 UNITS SC ×2 (07:43→20:30)
[2023-05-05] MEDS: SYMBICORT 160/4.5 MCG INHALER 2 PUFF INH (07:44)
[2023-05-05] MEDS: NON-FORMULARY ITEM 1 UNIT PO (07:44)
[2023-05-05] MEDS: DUONEB 3 ML INH ×2 (07:48→20:22)
--- NOTE | 2023-05-05 08:21 | W.PN.HOSP.TC ---
Today's Communication/Plan
-
IV Lasix, cardiac monitoring, plan for pacemaker possible upon transfer or as inpatient if he stays.
Assessment / Plan
Assessment / Plan
Gen-awake, NAD
HEENT-NC, AT, anicteric, clear oral mm
Neck-supple
CV-reg, no M, +S1/S2
Lungs-decreased breath sounds bilaterally.
Abd-soft, NT, ND
Ext-no edema
Musculoskeletal-no cyanosis, clubbing
Skin-excoriations throughout extremities due to scratching, dry skin.
Neuro-grossly non-focal
Psych-calm, cooperative
A/P:
I discussed today with patient, family at bedside, and daughter over the phone. I also discussed with PA e learning developer today. Patient expecting transfer to [facility] since they were planning outpatient pacemaker this week, but transfer has
been initiated by cardiology and it is not clear that he will be accepted and since we can offer these services it is more complicated so we will follow-up further cardiology recommendations at the moment. All paperwork for possible transfer
completed. Otherwise would need to sign AMA if he is not staying.
Acute hypoxic respiratory failure -differential diagnosis includes acute heart failure exacerbation, COPD exacerbation, etc. Currently on 2 L nasal cannula oxygen, wean down as able. Chest x-ray shows severe chronic lung disease, poor inspiratory
effort. Changes of COPD.
Acute heart failure preserved EF exacerbation - Awaiting echocardiogram. [facility] Folder is located in [facility]. Continue IV Lasix per cardiology. Await records.
Sick sinus syndrome -scheduled for pacemaker at [facility] this Friday.
COPD with possible exacerbation -wheezing resolved. Given a dose of Decadron yesterday. States he does have a cough but does not notice any significant changes in cough. Continue inhalers.
Troponin elevation -suspect non-AR troponin elevation due to heart failure exacerbation. Troponin has peaked.
History of respiratory failure status post prior trach/PEG tube
CAD with history of remote stent -Continue aspirin, statin
Essential hypertension -Continue valsartan
DM2 with hyperglycemia -not on meds. Glucose 210 this morning. Check hemoglobin A1c. Use SSI for now.
Psoriasis -On Skyrizi
Alcoholic cirrhosis
Alcohol use disorder -No longer drinks alcohol
Former smoker
History of pancreatitis
Prior history of falls
Anxiety -Continue Ativan
Allergies -Continue cetirizine/fexofenadine
Full code
Total time spent on today's encounter was 52 minutes which included time spent in counseling the patient/family regarding diagnosis and treatment plan as listed above, goals of care, and symptom management. Case was discussed with nursing staff,
specialists, and care coordinators/case management. All labs and imaging personally reviewed by me. Remainder the time spent in detailed review of previous records, lab data, imaging, and other medical provider documentation.
Anticipated Discharge: 24 - 48 hours
Subjective/Interval History
-
Date of Service: May 05, 2023
Patient denies any chest pain or shortness of breath. Denies any lightheadedness.
Objective Data
-
Labs:
Laboratory Results
05/05/23
05:49
Sodium 136
Potassium 4.3
Chloride 97 L
Carbon Dioxide 35 H
BUN 38 H
Creatinine 0.9
Glucose 103 H
Calcium 8.0 L
Vital Signs:
Vital Signs
Temp Pulse Resp BP Pulse Ox
98.4 F 67 16 117/64 95
05/05/23 03:30 05/05/23 07:51 05/05/23 07:51 05/05/23 07:43 05/05/23 07:51
I&O
05/04/23 05/05/23 05/06/23
06:59 06:59 06:59
Intake Total 480 / 480 700 / 700
Output Total 675 / 1075 1450 / 1450
Balance -195 / -595 -750 / -750
Review of Systems
-
All other systems: Reviewed and negative
--- NOTE | 2023-05-05 09:42 | W.PN.CARDCBS ---
Addendum entered and electronically signed by Cristofer Garcia MD 05/05/23 11:08:
I saw and examined the patient.
The FIELD ARTILLERY BASIC or PA's note was reviewed and I agree with the note.
Comment: General: Well developed, well nourished in NAD.
Neck: Supple, no JVD, HJR, carotids +2 B/L, no bruits bilaterally.
Heart: Non displaced PMI, RRR, no murmurs, No S3, S4, no rubs.
Lungs: Scattered rhonchi
Extremities: No clubbing, cyanosis or edema bilaterally.
Neuro: Grossly nonfocal, awake, alert and oriented x3.
Heart rate good at present. Try to arrange transfer to [facility]. He remains on 4 L of oxygen. This may be multifactorial with prior tobacco and current tobacco use. Continue IV Lasix for CHF. Discussed with son at bedside.
Original Note:
Today's Communication / Plan
-
-Attempting to transfer to [facility] as patient was previously scheduled for a PPM with Dr. Barrera at that facility on 05/06/23. Await call back.
-Weight is down, still on oxygen at 2 L NC
-Recommend transferring out to [facility] pending bed availability and possibility of transfer
Impression / Plan
-
PCP: Dr. Gabbi Sánchez
Cardiology: Dr. Kennedy
EP: Dr. Apolinar Barrera
Impression:
Admitted with SOB and chest pressure 05/02/23
Acute heart failure, EF unknown
SSS with Mobitz 2 second-degree heart block with left bundle branch block
History of sick sinus syndrome with pauses in the past on Linq monitor/scheduled for pacer at [facility] on 05/06/2023
Elevated Troponin
CAD h/o RCA stent at in 2012
History of COPD
History of respiratory failure status post tracheostomy
Hypertension
DM 2
Psoriasis
History of pancreatitis
History of seizures
History of GI bleed
Alcoholic cirrhosis
Former alcohol use disorder
Catheterization May 2012: Expedition stent to mid RCA, 30% LAD, 40% OM 2
Plan:
-Patient with Mobitz 2 and chronic LBBB with HRs 50-60s overnight and up to 130 at times with activity. Outpatient dose of Coreg 6.25 mg BID has been continued throughout admission.
-Patient with a h/o SSS and follows with EP Dr. Barrera at [facility] and was scheduled for a PPM at [facility] on 05/06/23, but came to [facility] on 05/02/23 with chest pressure and SOB.
-Since admission patient has diuresed 7 lbs and has symptomatically improved and is no longer SOB. Pulse ox 95% on 2 L NC. Patient was not using supplemental oxygen prior to admission.
-EF unknown, called his primary parts sales advisor for records, await their arrival for review.
-Cre stable at 0.9 with Lasix 40 mg IV daily diuresis. Patient was not taking a diuretic prior to admission.
-Patient also with a h/o COPD and uses maintenance inhalers. Not sure how much of his ongoing oxygen needs are related to CHF vs COPD.
-Troponin peaked at 0.6. Patient reports chest pain resolved in the ER and has not recurred. Patient with a h/o CAD. Again, await records and recent echo. For now will manage as a nonischemic myocardial injury Troponin elevation.
-Called and talked to [facility] initially for 10:53 and then again for 7 min on 05/05/23 to facilitate transfer. Patient is scheduled for a PPM with Dr. Barrera in the CVIR at [facility] on 05/06/23. Attempting to
transfer to that facility, awaiting a call back. Patient and family updated x2 on 05/05/23.
-Spent 90 minutes on the phone, with the record, writing the note and talking with nursing and attending
-Recommend transferring out to tele pending bed availability and possibility of transfer
HPI 05/02/23: Anatoly has a history of COPD, CAD status post RCA stent in 2012, rate related left bundle branch block with sick sinus syndrome and prior Linq implant, COPD, alcohol abuse, respiratory failure with prior tracheostomy and PEG tube,
cirrhosis, pancreatitis, bradycardia with scheduled pacer at [facility] on 05/06/2023, hypertension, diabetes, psoriasis.� He was visiting his daughter in [place].� He had increasing shortness of breath and was brought to the ER and is
admitted for acute diastolic CHF.� Of note he has had bradycardia recently with heart rates in the 30s to 40s with fatigue and was scheduled for a pacer by Dr. Cruz at [facility] on 05/06/23.� He was given IV Lasix.� He feels better.� He
remains on oxygen.� He claims she will sign out AMA later today
Progress Note - Remote Ruby On Rails Developer
Subjective
Date of Service: May 05, 2023
He is less SOB and wants to be transferred today
Objective
Labs:
05/03/23 05:52
05/05/23 05:49
Labs
Hgb 15.0 g/dL (13.0-18.0) 05/03/23 05:52
Hct 47.2 % (39.0-52.0) 05/03/23 05:52
Plt Count 265 10^3/uL (130-400) 05/03/23 05:52
Sodium 136 mmol/L (135-145) 05/05/23 05:49
Potassium 4.3 mmol/L (3.5-5.1) 05/05/23 05:49
BUN 38 mg/dl (9-20) H 05/05/23 05:49
Creatinine 0.9 mg/dL (0.7-1.3) 05/05/23 05:49
Glucose 103 mg/dl (70-99) H 05/05/23 05:49
Troponins
05/02/23 05/02/23 05/03/23
17:48 18:30 00:22
Troponin I Cancelled 0.090 H* 0.338 H* D
05/03/23 05/03/23 05/03/23
05:52 12:00 19:39
Troponin I 0.420 H* Cancelled 0.606 H*
05/04/23
01:35
Troponin I 0.537 H*
Vital Signs and I&O:
Vital Signs
Temp Pulse Resp BP Pulse Ox
98.4 F 67 16 117/64 95
05/05/23 03:30 05/05/23 07:51 05/05/23 07:51 05/05/23 07:43 05/05/23 07:51
Vital Signs
Temp Pulse Resp BP Pulse Ox
98.4 F 67 16 117/64 95
05/05/23 03:30 05/05/23 07:51 05/05/23 07:51 05/05/23 07:43 05/05/23 07:51
Intake & Output
05/03/23 05/04/23 05/05/23 05/06/23
06:59 06:59 06:59 06:59
Intake Total 480 / 480 480 / 480 700 / 700
Output Total 700 / 700 675 / 1075 1450 / 1450
Balance -220 / -220 -195 / -595 -750 / -750
Physical Exam
Physical Exam
General: NAD. AAO x3
Skin: No rash
Heart: Reg
Lungs: Wearing oxygen at 2 L NC. Scattered rhonchi
Abdomen: +BS
Extremities: No edema B/L LE
Neuro: Grossly nonfocal
[2023-05-05] MEDS: DIOVAN 40 MG PO (10:36)
[2023-05-05 12:26] LABS: Glucose - Point of Care 110 mg/dl (70-99)
--- NOTE | 2023-05-05 12:42 | W.PN.UPDATE ---
Addendum entered and electronically signed by Laura Patel PA-C 05/06/23 08:19:
Talked with patient and his daughter again before leaving last night. Patient decided that he no longer wants to pursue transfer. Called the [facility] transfer center at 1706 and told them that transfer request cancelled. Will check pacer
schedule and plan for likely PPM at 05/06/23.
Addendum entered and electronically signed by Laura Patel PA-C 05/05/23 16:33:
Records received from primary sole polisher's office.
Last cath 05/28/18: BMS to prox/mid LAD for 85% stenosis with jailing of two small diagonal branches, previously placed RCA stent patent, Circ DESIGN STUDIO CONSULTANT
Echo 04/16/23: EF 55-60%, no /AI, mild to mod MR
Addendum entered and electronically signed by Laura Patel PA-C 05/05/23 15:00:
Just received a call from transfer center that faxed paperwork was not received. Called and talked with [facility] aboriginal community council member who has a fax confirmation in hand. Regardless will send again and confirmed fax # as [phone]. will resend records.
Addendum entered and electronically signed by Cristofer Garcia MD 05/05/23 13:16:
Total visit time more than 1 hour spent preparing transfer with multiple calls to transfer center
Addendum entered and electronically signed by Laura Patel PA-C 05/05/23 13:03:
Talked to Hospitalist attending at [facility], Dr. Olga Mercado, explained case. Again, there is not a medical need for transfer as can place a PPM, but patient and family are requesting transfer for continuity of care. Will fax face sheet,
H&P an 48 hours of progress notes to fax #[phone].
Original Note:
Update Note
Progress Note Update
Patient and family requesting transfer to [facility]. Called and talked to [facility] initially for 10:53 min. Then got a call from [facility] again and talked to attending at the [facility] who recommended that the patient be sent the [facility], this call was 7 minutes, this was at 1034 AM. Got a call back from the transfer center at 1240 PM to connect me with Dr. Barrera to discuss the case, answered
questions and was told that patient should be re-evaluated before being transferred for pacer. Explained that I am aware that can place a PPM, but the impetus for this transfer request was that the patient and family are requesting, call lasted
5:42 min. Was cautioned by the transfer center that it could take at a minimum of hours to a max of days. Now awaiting a call back from the transfer center so that I can talk to the hospitalist service that will accept the patient. [facility]
has not yet asked for face sheet.
Patient is scheduled for a PPM with Dr. Barrera in the CVIR at [facility] on 05/06/23. Attempting to transfer to that facilityat patient's request, awaiting a call back. Patient and family updated x2 on 05/05/23.
--- NOTE | 2023-05-05 15:46 | CM ---
Addendum entered by Lisa Dickey RN 05/05/23 15:57:
If no acute to acute transfer, CM will need to watch for home O2 needs, and offer VN for SN for heart failure & PT/OT.
Original Note:
Patient with Dx Acute hypoxic respiratory failure, Acute heart failure, Sick sinus syndrome. O2 2L. Receiving IV Lasix. PT & OT recommend HH.
Message from [facility]; patient/family request for transfer to [facility] for pacemaker insertion, once accepted by their cardiology service. Will need ALS transfer for cardiac monitoring. Will
remain on O2nc with no drips.
Spoke with patient who is hoping to be transferred to [facility] today for pacemaker insertion there tomorrow.
Ambulance form and Transport Front End Engineer Form completed and given to Jaimie, Cytology Teacher, who is aware of the request for ALS ambulance.
Plan possible transfer to [facility] by ALS ambulance.
--- NOTE | 2023-05-05 16:43 | PTCARENOTE ---
Patient out of bed to chair. Plan is to transfer to [facility] for pacemaker placement. Patient is now asking to speak to Laura MINA regarding staying here for procedure. Patient denying pain when asked today. Family at bedside. Good
appetite. EKG results discussed with cardiology team.
[2023-05-05 17:37] LABS: Glucose - Point of Care 120 mg/dl (70-99)
--- NOTE | 2023-05-05 20:24 | PTCARENOTE ---
Received pt from [facility]. Pt is AAOx3, LE weakness. NSR w/ BBB on the monitor. On 2L NC O2 sat 96%, lungs coarse/diminished. Abd round, pt uses the urinal. OOBx1 w/ cane to the BR. Pt is laying comfortable in bed with call gutierrez in reach.
[2023-05-05] MEDS: SYMBICORT 160/4.5 MCG INHALER INH (20:34)
[2023-05-05] MEDS: ZYRTEC 10 MG PO (21:38)
[2023-05-05 22:18] LABS: Glucose - Point of Care 99 mg/dl (70-99)
[2023-05-06] VITALS (16 sets, daily range): BP systolic 104–136; BP diastolic 54–85; BMI 20.7
[2023-05-06 05:09] LABS: Hematocrit 41.1 % (39.0-52.0); Hemoglobin 13.7 g/dL (13.0-18.0); Mean Corp Hgb Conc. 33.3 g/dL (33.0-37.0); Mean Corpuscular Hgb 33.1 pg (27.0-31.0); Mean Corpuscular Volume 99.3 fL (80.0-94.0); Mean Platelet Volume 10.3 fL (7.4-10.4); Platelet Count 240 10^3/uL (130-400); Red Blood Cell Count 4.14 10^6/uL (4.70-6.10); Red Cell Dist. Width 12.4 % (11.5-14.5); White Blood Cell Count 7.3 10^3/uL (4.8-10.8)
[2023-05-06 05:49] LABS: Blood Urea Nitrogen 28 mg/dl (9-20); Calcium 8.6 mg/dl (8.4-10.2); Carbon Dioxide 33 mmol/L (22-30); Chloride 97 mmol/L (98-107); Estimated Creatinine Clearance 77 ml/min; Glucose 107 mg/dl (70-99); Magnesium 2.1 mg/dl (1.6-2.3); Potassium 4.3 mmol/L (3.5-5.1); Sodium 136 mmol/L (135-145); eGFR > 60.00
[2023-05-06] MEDS: DUONEB 3 ML INH ×2 (08:22→20:20)
[2023-05-06] MEDS: SYMBICORT 160/4.5 MCG INHALER INH ×2 (08:22→08:24)
[2023-05-06 08:44] LABS: Glucose - Point of Care 94 mg/dl (70-99)
[2023-05-06] MEDS: NOVOLOG FLEXPEN-LOW RESISTANCE SC ×3 (08:45→17:11)
[2023-05-06] MEDS: HEPARIN SC (08:46)
[2023-05-06] MEDS: DIOVAN 40 MG PO (08:55)
[2023-05-06] MEDS: ASPIR LOW (ENTERIC COATED) 81 MG PO (08:55)
[2023-05-06] MEDS: COREG 6.25 MG PO ×2 (08:55→19:47)
[2023-05-06] MEDS: LASIX 40 MG IV (08:55)
[2023-05-06] MEDS: LIPITOR 20 MG PO (08:55)
[2023-05-06] MEDS: NON-FORMULARY ITEM 1 UNIT PO (08:56)
--- NOTE | 2023-05-06 09:37 | W.PN.HOSP.TC ---
Today's Communication/Plan
-
PPM, IV steroids, IV diuretics.
Assessment / Plan
Assessment / Plan
Gen-awake, NAD
HEENT-NC, AT, anicteric, clear oral mm
Neck-supple
CV-reg, no M, +S1/S2
Lungs-decreased breath sounds bilaterally.
Abd-soft, NT, ND
Ext-no edema
Musculoskeletal-no cyanosis, clubbing
Skin-excoriations throughout extremities due to scratching, dry skin.
Neuro-grossly non-focal
Psych-calm, cooperative
A/P:
Sick sinus syndrome -scheduled for pacemaker at [facility] or [facility] this Friday. Initially patient wanted transfer to [facility] but now he accepted to stay here in the hospital. Plan for permanent pacemaker today.
Acute hypoxic respiratory failure -differential diagnosis includes acute heart failure exacerbation, COPD exacerbation, etc. Currently on 2 L nasal cannula oxygen, wean down as able. Chest x-ray shows severe chronic lung disease, poor inspiratory
effort. Changes of COPD. Start IV steroids, Dexa 4 mg Q 8Hr and taper tomorrow.
Acute heart failure preserved EF exacerbation - Awaiting echocardiogram. [facility] [facility] is located in [facility]. Continue IV Lasix per cardiology. Await records.
COPD with possible exacerbation -wheezing back today. Start iv steroids. States he does have a cough but does not notice some worsening and daughter feels it is worse as well. Continue inhalers.
Troponin elevation -suspect non-[place] troponin elevation due to heart failure exacerbation. Troponin has peaked.
History of respiratory failure status post prior trach/PEG tube
CAD with history of remote stent -Continue aspirin, statin
Essential hypertension -Continue valsartan
DM2 with hyperglycemia -not on meds. Glucose 107 this morning. Checked hemoglobin A1c and 5.8. Use SSI for now and can adjust depending on BS now that he is on steroids.
Psoriasis -On Skyrizi
Alcoholic cirrhosis
Alcohol use disorder -No longer drinks alcohol
Former smoker
History of pancreatitis
Prior history of falls
Anxiety -Continue Ativan
Allergies -Continue cetirizine/fexofenadine
Full code
Total time spent on today's encounter was 52 minutes which included time spent in counseling the patient/family regarding diagnosis and treatment plan as listed above, goals of care, and symptom management. Case was discussed with nursing staff,
specialists, and care coordinators/case management. All labs and imaging personally reviewed by me. Remainder the time spent in detailed review of previous records, lab data, imaging, and other medical provider documentation.
Anticipated Discharge: > 48 hours
Subjective/Interval History
-
Date of Service: May 06, 2023
Patient still sob today, wheezing, no cp. Tachycardic earlier
Objective Data
-
Labs:
Laboratory Results
05/06/23
04:48
WBC 7.3
Hgb 13.7
Hct 41.1
Plt Count 240
Sodium 136
Potassium 4.3
Chloride 97 L
Carbon Dioxide 33 H
BUN 28 H
Creatinine 0.8
Glucose 107 H
Calcium 8.6
Vital Signs:
Vital Signs
Temp Pulse Resp BP Pulse Ox
97.7 F 115 18 116/54 95
05/06/23 07:45 05/06/23 08:33 05/06/23 08:33 05/06/23 08:00 05/06/23 08:33
I&O
05/05/23 05/06/23 05/07/23
06:59 06:59 06:59
Intake Total 700 / 700 700 / 700
Output Total 1450 / 1450 2000 / 1999 150 / 150
Balance -750 / -750 -1300 / -1300 -150 / -150
[2023-05-06 12:05] LABS: Glucose - Point of Care 92 mg/dl (70-99)
--- NOTE | 2023-05-06 13:57 | PTCARENOTE ---
Patient being taken for pacemaker; daughter at bedside an aware.
--- NOTE | 2023-05-06 16:09 | ITS.CL.PACE ---
Construction Mgr - Pacemaker Implant
Pacemaker Implant
Procedure Report:
PACEMAKER IMPLANT REPORT
PCP: Dr. Gabbi Sánchez
Cardiology: Dr. Kennedy
EP: Dr. Apolinar Barrera
Date of Procedure: 05/06/23
Procedure:
Implantation of dual-chamber permanent pacemaker utilizing the left bundle branch for conduction system pacing
Indication/Diagnosis:
Non-reversible symptomatic bradycardia due to sinus node dysfunction as well as second atrioventricular block.
He has left ventricular systolic dysfunction with LVEF of 40 to 45%. He has left bundle branch block. Given periods of second-degree AV block a high percentage of ventricular pacing is expected, greater than 40%. Therefore cardiac
resynchronization permanent pacemaker has been requested.
After informed consent was obtained, 'time out' was called and confirmed, the patient was prepped and draped in a sterile fashion. Lidocaine with epi was used for local anesthesia. Central venous access was obtained via subclavian venipuncture. An
incision was made along the left chest and a pre-pectoral pocket was formed. Using a Seldinger technique and peel-away sheaths, the pacing leads were placed under fluoroscopic guidance.
Fluoroscopy was used to determine likely anatomic site for left bundle branch pacing. The Medtronic C315 sheath was used to deliver the Medtronic 3830 Selectsecure pacing lead with the helix exposed just exposed from the sheath tip during continuous
monitoring when pacemapping the septum during gentle clockwise rotation to obtain a paced QRS morphology of a W pattern in lead V1. Once the suspected optimal site was identified, lead deployment was performed with several rapid rotations as paced
QRS morphology was intermittently monitored until a paced QRS complex in lead V1 demonstrated development of an R wave (rSr).
Unipolar pacing impedance dropped by approximately 200 ohms suggesting it had reached the left ventricular subendocardial.
Stable VEgm injury current is present throughout lead position and at end of case.
Final unipolar pacing impedance is 900 Ohms
Unipolar pacing threshold is stable at 1.25 V @ 0.4 ms.
The patient had pre-existing left bundle branch block at baseline with QRS duration 146 ms.
Final conduction system paced QRS complex duration is 122 ms
LVAT is 53 ms and peak V5 -> peak V1 timing is 63 ms
Right atrial lead was placed at the RAA.
Once testing (see below) showed adequate and stable function, the leads were secured using the suture sleeves. The pocket was liberally irrigated with antibiotic solution. The leads were connected to the generator header and the leads and
generator were placed within the pocket. Fluoroscopy confirmed stable lead position. The pocket was closed in the typical fashion.
Fluoroscopy was used to guide lead placement. Fluoroscopic exposure 8.7 min and 30.34 mGy
IMPLANTS:
Medtronic [id number], SN: [id number], Left Pectoral
RA: Medtronic 5076-45, SN: [id number], RAA
RV: Medtronic 3830 , SN:[id number], Interventricular septum at LBB
DEVICE TESTING:
Sensing: RA 1.5 mV, RV 4.6 mV
Capture: RA 1.25 V@0.4ms, RV 0.8 V@0.4ms
Ohms: RA 550 , RV 969
FINAL PROGRAMMING
Napoleon Pacing: DDDR 60-130 ppm
COMPLICATIONS:
None
CONCLUSIONS:
1: Successful implant of dual chamber permanent pacemaker utilizing Left Bundle Branch capture for conduction system pacing.
RECOMMENDATIONS:
1. Post-op care (tele, CXR, IV abx)
2. In-Office wound check in 5-7 days
--- NOTE | 2023-05-06 16:10 | PTCARENOTE ---
Patient to go to IVU post pacemaker placement; report given to Christina.
--- NOTE | 2023-05-06 16:11 | PTCARENOTE ---
received patient from logging rafter laborer post pacer placement. drowsy but arousable. 100% Apaced on monitor HR in 80s. EKG done. Arm immobilizer in place and pressure dressing applied to L chest wall. VSS. Daughter updated and will be coming up to the
bedside. will continue to monitor. bedrest planned for 1 hr and then CXR.
[2023-05-06] MEDS: DECADRON 4 MG IV ×2 (17:03→22:46)
[2023-05-06 17:12] LABS: Glucose - Point of Care 103 mg/dl (70-99)
[2023-05-06] MEDS: SYMBICORT 160/4.5 MCG INHALER 2 PUFF INH (20:20)
[2023-05-06] MEDS: ANCEF 5 IV (21:23)
--- NOTE | 2023-05-06 21:42 | PTCARENOTE ---
received patient at the change of shift. daughter at the bedside and staying overnight. AV/CUSTOMER SERVICE SECURITY OFFICER on tele 60s-70s. bp stable. denies any pain. L chest incision, CDI. L arm immobilizer intact. reviewed activity restrictions and verbalized understanding.
ambulating to the BR with assistance. calls appropriately. attempting to wean oxygen. 2L to 1L NC-92-94%.
[2023-05-06 21:55] LABS: Glucose - Point of Care 168 mg/dl (70-99)
[2023-05-06] MEDS: ZYRTEC 10 MG PO (22:45)
[2023-05-06] MEDS: ATIVAN 1 MG PO (22:45)
[2023-05-07] VITALS (9 sets, daily range): BP systolic 83–125; BP diastolic 49–76; PULSE 76–84; O2SAT 95–97; BMI 20.7
[2023-05-07] MEDS: ATIVAN 1 MG PO (01:27)
--- NOTE | 2023-05-07 02:16 | PTCARENOTE ---
daughter came to door way and nurse entered room. patient states having pain at PPM site. RN offered patient Tylenol and patient declined. 'That never works for me, just give me another dose of Ativan.' RN educated patient on medication and proper
usage. patient then became argumentative despite education and other measures. discussed plan of care with Kelly NEON GLASS BENDER. ordered placed for Ativan 1 mg, see mar.
[2023-05-07] MEDS: ANCEF 5 IV (05:14)
[2023-05-07 06:23] LABS: Hematocrit 44.3 % (39.0-52.0); Hemoglobin 14.6 g/dL (13.0-18.0); Mean Corpuscular Volume 97.1 fL (80.0-94.0); Mean Platelet Volume 10.4 fL (7.4-10.4); Platelet Count 249 10^3/uL (130-400); Red Blood Cell Count 4.56 10^6/uL (4.70-6.10); Red Cell Dist. Width 12.2 % (11.5-14.5); White Blood Cell Count 7.2 10^3/uL (4.8-10.8)
[2023-05-07 06:54] LABS: Blood Urea Nitrogen 34 mg/dl (9-20); Calcium 8.8 mg/dl (8.4-10.2); Carbon Dioxide 32 mmol/L (22-30); Chloride 98 mmol/L (98-107); Estimated Creatinine Clearance 77 ml/min; Glucose 150 mg/dl (70-99); Potassium 4.8 mmol/L (3.5-5.1); Sodium 134 mmol/L (135-145); eGFR > 60.00
[2023-05-07 07:12] LABS: Glucose - Point of Care 142 mg/dl (70-99)
[2023-05-07] MEDS: SYMBICORT 160/4.5 MCG INHALER INH (07:26)
--- NOTE | 2023-05-07 08:20 | W.PN.CARDCBS ---
Addendum entered and electronically signed by Laura Patel PA-C 05/07/23 09:29:
Records faxed to Dr. Kennedy's office by me and paper copies given to patient in an envelope to take to Dr. Kennedy's office at his next appt.
Addendum entered and electronically signed by Deshawn Valadez MD 05/07/23 09:21:
Patient seen, interviewed and examined by me.
Well-appearing, no acute distress
Regular rate and rhythm with normal S1 and S2, no S3 no S4. There is a grade 1/6 apical holosystolic murmur and no rubs. PMI is normally placed.
Dressing at left chest is clean and dry.
I removed the outer pressure dressing
Underlying Aquacel dressing is clean and dry.
There is no induration or surrounding erythema. There is mild discomfort to palpation.
Afebrile
Lungs are clear to auscultation bilaterally without wheezes rales or rhonchi.
Abdomen soft nontender nondistended with normoactive bowel sounds
Extremities show trace pretibial edema bilaterally no clubbing or cyanosis.
Neurologic exam is grossly nonfocal.
Agree with advanced practice professionals assessment and plan as noted below.
He is now status post dual-chamber permanent pacemaker implantation for symptomatic sick sinus syndrome and high-grade AV block.
Telemetry shows normal functioning DDD pacemaker.
Afebrile, no leukocytosis, chest x-ray shows normal stable lead position with no evidence of pneumothorax.
I met with the patient and his daughter who is bedside and I answered all of their questions. I described recommended arm motion restrictions over the next month.
All of their questions have been answered.
Wound check will be arranged.
He will continue to follow with his primary director security risk management, Dr. Apolinar Barrera.
Original Note:
Today's Communication / Plan
-
Stable for d/c from a cardiac standpoint
Change Lasix to 40 mg PO daily and then continue upon discharge.
Incision check scheduled at [facility] and then he can follow up with his regular director security risk management
Impression / Plan
-
PCP: Dr. Gabbi Sánchez
Cardiology: Dr. Kennedy
EP: Dr. Apolinar Barrera
Impression:
Admitted with SOB and chest pressure 05/02/23
Acute HFpEF
s/p Medtronic DC PPM utilizing Left Bundle Branch capture for conduction system pacing 05/06/23
SSS with Mobitz 2 second-degree heart block with left bundle branch block
History of sick sinus syndrome with pauses in the past on Linq monitor/scheduled for pacer at [facility] on 05/06/2023
Elevated Troponin
CAD h/o RCA stent at in 2012
History of COPD
History of respiratory failure status post tracheostomy
Hypertension
DM 2
Psoriasis
History of pancreatitis
History of seizures
History of GI bleed
Alcoholic cirrhosis
Former alcohol use disorder
Catheterization May 2012: Expedition stent to mid RCA, 30% LAD, 40% OM 2
Last cath 05/28/18:� BMS to prox/mid LAD for 85% stenosis with jailing of two small diagonal branches, previously placed RCA stent patent, Circ SIMPLEX OPERATOR
Echo 04/16/23: EF 55-60%, no /AI, mild to mod MR
Plan:
-Patient is s/p Medtronic DC PPM using left bundle branch capture for conduction system pacing on 05/06/23. He has some incision site soreness, but no hematoma.
-Patient was previously scheduled for a PPM at [facility] on 05/06/23, but [facility]23 with chest pressure and SOB. PPM previously planned due to LBBB, Mobitz 2 and pauses on outpatient monitoring managed by Dr. Kennedy and
Holly at [facility]. Attempted to transfer patient to [facility] and patient and family's request for continuity of care, but after 5 phone calls throughout the day including speaking directly with Dr. Barrera who
recommended that the patient be medically optimized and discharged to follow up in their office. Patient and family did not like that answer and instead asked if patient could have PPM at and then follow up with Dr. Kennedy as an outpatient.
-Otherwise weight is down 6 lbs and oxygen demands have improved to 1-2 L NC. Patient was not using supplemental oxygen prior to admission and is asking for home oxygen. Will ask CM to evaluate.
-Cre stable at 0.8 with Lasix 40 mg IV daily diuresis. Patient was not taking a diuretic prior to admission. Recommend Lasix 40 mg PO daily upon discharge.
-Patient also with a h/o COPD and uses maintenance inhalers. Not sure how much of his ongoing oxygen needs are related to CHF vs COPD.
-Troponin peaked at 0.6. Chest pain resolved in the ER and has not recurred. Patient with a h/o CAD as noted above. Managed as a nonischemic myocardial injury Troponin elevation due to acute HF and hypoxia.
-Stable for d/c from cardiac standpoint. Incision check at [facility] office on 05/15/23 and patient will follow up thereafter with his primary director security risk management. Called Dr. Kennedy's office on 05/07/23 at 0906 and talked with the electrician front about a follow up
appointment for patient. Patient was previously scheduled to see Dr. Kennedy on 05/14/23, but in a 15 minute spot so the electrician front transferred me to the coordinator named Kandi and I had to leave a message asking for a call back to change time of
appointment to a 30 minutes spot for hospital follow up. Await call back.
HPI 05/02/23: Anatoly has a history of COPD, CAD status post RCA stent in 2012, rate related left bundle branch block with sick sinus syndrome and prior Linq implant, COPD, alcohol abuse, respiratory failure with prior tracheostomy and PEG tube,
cirrhosis, pancreatitis, bradycardia with scheduled pacer [facility] on 05/06/2023, hypertension, diabetes, psoriasis.� He was visiting his daughter in [place].� He had increasing shortness of breath and was brought to the ER and is
admitted for acute diastolic CHF.� Of note he has had bradycardia recently with heart rates in the 30s to 40s with fatigue and was scheduled for a pacer by Dr. Cruz at [facility] on 05/06/23.� He was given IV Lasix.� He feels better.� He
remains on oxygen.� He claims she will sign out AMA later today
Progress Note - Administrative Medical Director
Subjective
Date of Service: May 07, 2023
He has soreness at implant site
Objective
Labs:
05/07/23 05:20
05/07/23 05:20
Labs
Hgb 14.6 g/dL (13.0-18.0) 05/07/23 05:20
Hct 44.3 % (39.0-52.0) 05/07/23 05:20
Plt Count 249 10^3/uL (130-400) 05/07/23 05:20
Sodium 134 mmol/L (135-145) L 05/07/23 05:20
Potassium 4.8 mmol/L (3.5-5.1) 05/07/23 05:20
BUN 34 mg/dl (9-20) H 05/07/23 05:20
Creatinine 0.8 mg/dL (0.7-1.3) 05/07/23 05:20
Glucose 150 mg/dl (70-99) H 05/07/23 05:20
Vital Signs and I&O:
Vital Signs
Temp Pulse Resp BP Pulse Ox
97.9 F 69 16 119/61 93
05/07/23 07:09 05/07/23 07:09 05/07/23 07:09 05/07/23 04:57 05/07/23 07:09
Vital Signs
Temp Pulse Resp BP Pulse Ox
97.9 F 69 16 119/61 93
05/07/23 07:09 05/07/23 07:09 05/07/23 07:09 05/07/23 04:57 05/07/23 07:09
Intake & Output
02/12/05/06/23 05/07/23 05/08/23
06:59 06:59 06:59 06:59
Intake Total 700 / 700 700 / 700 240 / 240
Output Total 1450 / 1450 2000 / 2000 350 / 350
Balance -750 / -750 -1300 / -1300 -110 / -110
Physical Exam
Physical Exam
General: NAD. AAO x3
Skin: No rash
Heart: Left ACW implant site without hematoma or ecchymosis. Reg
Lungs: Wearing oxygen at 2 L NC. Scattered rhonchi
Abdomen: +BS
Extremities: No edema B/L LE
Neuro: Grossly nonfocal
--- NOTE | 2023-05-07 08:35 | W.PN.HOSP.TC ---
Addendum entered and electronically signed by Nahum Hartley DO 05/07/23 11:09:
Patient is in need of oxygen on exertion due to pulse oximetry of 91% on room air at rest; 87% on room air with exertion.
Patient was placed on 2L O2 via nasal cannula with saturation of 95%. Oxygen will help to improve hypoxemia.
Patient is mobile within the home. Albuterol therapy has been discussed and is ineffective in treating hypoxemia-related symptoms.
Oxygen will improve the patient's symptoms.
Original Note:
Today's Communication/Plan
-
Continue current care
Assessment / Plan
Assessment / Plan
Gen-awake, NAD
HEENT-NC, AT, anicteric, clear oral mm
Neck-supple
CV-reg, no M, +S1/S2
Lungs-decreased breath sounds bilaterally.
Abd-soft, NT, ND
Ext-no edema
Musculoskeletal-no cyanosis, clubbing
Skin-excoriations throughout extremities due to scratching, dry skin.
Neuro-grossly non-focal
Psych-calm, cooperative
Sick sinus syndrome -pacemaker placed 05/06. Postprocedure chest x-ray negative for pneumothorax.
Acute hypoxic respiratory failure -differential diagnosis includes acute heart failure exacerbation, COPD exacerbation, etc. Currently on 2 L nasal cannula oxygen, wean down as able. Chest x-ray shows severe chronic lung disease, poor inspiratory
effort. Changes of COPD. Continue steroids, convert to prednisone.
Acute heart failure preserved EF exacerbation - Awaiting echocardiogram. Air Defense Control Officer is located in [facility]. Continue IV Lasix per cardiology. Await records.
COPD with possible exacerbation -wheezing back today. Start iv steroids. States he does have a cough but does not notice some worsening and daughter feels it is worse as well. Continue inhalers.
Troponin elevation -suspect non-AL troponin elevation due to heart failure exacerbation. Troponin has peaked.
History of respiratory failure status post prior trach/PEG tube
CAD with history of remote stent -Continue aspirin, statin
Essential hypertension -Continue valsartan
DM2 with hyperglycemia -not on meds. Glucose 150 this morning. Checked hemoglobin A1c and 5.8. Use SSI for now and can adjust depending on BS now that he is on steroids.
Psoriasis -On Skyrizi
Alcoholic cirrhosis
Alcohol use disorder -No longer drinks alcohol
Former smoker
History of pancreatitis
Prior history of falls
Anxiety -Continue Ativan
Allergies -Continue cetirizine/fexofenadine
Full code
Anticipated Discharge: Within 24 hours
Subjective/Interval History
-
Date of Service: May 07, 2023
Patient seen and examined. No complaints. Eating breakfast. Daughter at the bedside.
Objective Data
-
Labs:
Laboratory Results
05/07/23
05:20
WBC 7.2
Hgb 14.6
Hct 44.3
Plt Count 249
Sodium 134 L
Potassium 4.8
Chloride 98
Carbon Dioxide 32 H
BUN 34 H
Creatinine 0.8
Glucose 150 H
Calcium 8.8
Vital Signs:
Vital Signs
Temp Pulse Resp BP Pulse Ox
97.9 F 69 16 119/61 93
05/07/23 07:09 05/07/23 07:09 05/07/23 07:09 05/07/23 04:57 05/07/23 07:09
I&O
05/06/23 05/07/23 05/08/23
06:59 06:59 06:59
Intake Total 700 / 700 240 / 240
Output Total 1999 / 1999 350 / 350
Balance -1300 / -1300 -110 / -110
Review of Systems
-
History Source: Patient
All other systems: Reviewed and negative
[2023-05-07] MEDS: DECADRON 4 MG IV (09:11)
[2023-05-07] MEDS: ASPIR LOW (ENTERIC COATED) 81 MG PO (09:12)
[2023-05-07] MEDS: LASIX 40 MG PO (09:12)
[2023-05-07] MEDS: COREG 6.25 MG PO (09:12)
[2023-05-07] MEDS: LIPITOR 20 MG PO (09:12)
[2023-05-07] MEDS: DIOVAN 40 MG PO (09:12)
[2023-05-07] MEDS: NON-FORMULARY ITEM 1 UNIT PO (09:13)
[2023-05-07] MEDS: NOVOLOG FLEXPEN-LOW RESISTANCE SC ×2 (09:17→11:47)
[2023-05-07] MEDS: LASIX IV (09:18)
--- NOTE | 2023-05-07 11:12 | CM ---
Chart reviewed. Patient is independent of ADLS, lives alone in a 1st floor apartment, 0 JOJO, ambulates with a SPC outside the home. Respiratory assessed the patient and he qualifies for Home O2. Referral faxed to [employer]. Patient
also agreed to VN. Referral sent to [facility]. Plan is for the patient to return home with oxygen and [facility]. CM to follow
--- NOTE | 2023-05-07 11:19 | W.DS.TRANS ---
DC Summary - Sewing Machine Assembler
-
Discharge Instructions:
Discharge Diagnosis/Procedures Bi-V Pacemaker implant, acute heart failure
exacerbation, acute COPD exacerbation
Diet 2 Gram Sodium,Low Cholesterol,Low Fat
Activity As tolerated
Driving Restrictions No driving
Bathing Restrictions None
Blood Work -Non-fasting blood work to check kidney function
and electrolytes in 1 week.
Other Services VN
Specialty Instructions Weigh Daily
Instructions: *PCP/Other Director Of Public Health Heart Failure Instructions
Stand-Alone Forms: DC Inst - Implanted Device
Changes to Home Medications: No
Discharge Medications:
DC Medications w/original date entered in [employer]
albuterol sulfate 90 mcg/actuation aerosol inhaler (Ventolin HFA) 2 puff inhalation R Q6 PRN sob/wheezing 07/05/16
Skyrizi 1 dose SC [id number] 05/02/23
aspirin 81 mg tablet,delayed release 81 mg PO DAILY 05/02/23
atorvastatin 20 mg tablet 20 mg PO DAILY 05/02/23
carvedilol 6.25 mg tablet 6.25 mg PO BID 05/02/23
cetirizine 10 mg tablet (Zyrtec) 10 mg PO HS 05/02/23
fexofenadine 180 mg tablet 180 mg PO DAILY 05/02/23
fluticasone furoate 100 mcg-vilanterol 25 mcg/dose inhalation powder (Breo Ellipta) 1 inh inhalation R QPM 05/02/23
ipratropium 0.5 mg-albuterol 3 mg (2.5 mg base)/3 mL nebulization soln 3 ml inhalation R QID PRN sob/wheezing 05/02/23
lorazepam 1 mg tablet 1 mg PO BID PRN anxiety 05/02/23
valsartan 40 mg tablet 40 mg PO DAILY 05/02/23
furosemide 40 mg tablet 40 mg PO DAILY Heart Failure #30 tabs 05/07/23
Home Medication Changes
Pending Results: No
[2023-05-07 11:46] LABS: Glucose - Point of Care 121 mg/dl (70-99)
--- NOTE | 2023-05-07 14:08 | PTCARENOTE ---
d/c instructions read to pt and pt verbalized understanding. IV X2 removed and tele monitor removed. pt left with home O2, instructions, scripts, educational material and belongings from room. pt left via wheelchair with volunteer.
--- NOTE | 2023-05-07 15:33 | W.DS.TRANS ---
DC Summary - Court Security Officer
-
Discharge Instructions:
Discharge Diagnosis/Procedures Bi-V Pacemaker implant, acute heart failure
exacerbation, acute COPD exacerbation
Diet 2 Gram Sodium,Low Cholesterol,Low Fat
Activity As tolerated
Driving Restrictions No driving
Bathing Restrictions None
Blood Work -Non-fasting blood work to check kidney function
and electrolytes in 1 week.
Other Services VN
Specialty Instructions Weigh Daily
Instructions: *PCP/Other Printing Screen Assembler Heart Failure Instructions
Stand-Alone Forms: DC Inst - Implanted Device
Changes to Home Medications: No
Discharge Medications:
DC Medications w/original date entered in [employer]
albuterol sulfate 90 mcg/actuation aerosol inhaler (Ventolin HFA) 2 puff inhalation R Q6 PRN sob/wheezing 07/05/16
Skyrizi 1 dose SC [id number] 05/02/23
aspirin 81 mg tablet,delayed release 81 mg PO DAILY 05/02/23
atorvastatin 20 mg tablet 20 mg PO DAILY 05/02/23
carvedilol 6.25 mg tablet 6.25 mg PO BID 05/02/23
cetirizine 10 mg tablet (Zyrtec) 10 mg PO HS 05/02/23
fexofenadine 180 mg tablet 180 mg PO DAILY 05/02/23
fluticasone furoate 100 mcg-vilanterol 25 mcg/dose inhalation powder (Breo Ellipta) 1 inh inhalation R QPM 05/02/23
ipratropium 0.5 mg-albuterol 3 mg (2.5 mg base)/3 mL nebulization soln 3 ml inhalation R QID PRN sob/wheezing 05/02/23
lorazepam 1 mg tablet 1 mg PO BID PRN anxiety 05/02/23
valsartan 40 mg tablet 40 mg PO DAILY 05/02/23
furosemide 40 mg tablet 40 mg PO DAILY Heart Failure #30 tabs 05/07/23
prednisone 10 mg tablet 10 mg PO DIRECTED #20 tabs 05/07/23
Home Medication Changes
Pending Results: No
== END 2023-05-07 14:14 | disposition home health service (06) | DRG 242 ==
LOC: IVU 21:01
PROVIDERS: Hospitalist; Internal Medicine Cardiovascular Disease; Nurse Practitioner; Registered Nurse; ADMITTING PHYSICIAN Hospitalist; ATTENDING PHYSICIAN Hospitalist; CONSULT PHYSICIAN Internal Medicine Cardiovascular Disease; EMERGENCY PHYSICIAN Emergency Medicine; FAMILY PHYSICIAN Family Medicine
PROC: 0JH606Z Insertion of Pacemaker, Dual Chamber into Chest Subcutaneous Tissue and Fascia, Open Approach (ICD-10-PCS; 2023-05-06)
PROC: 02H63JZ Insertion of Pacemaker Lead into Right Atrium, Percutaneous Approach (ICD-10-PCS; 2023-05-06)
PROC: 02HK3JZ Insertion of Pacemaker Lead into Right Ventricle, Percutaneous Approach (ICD-10-PCS; 2023-05-06)
DX: I50.33 Acute on chronic diastolic (congestive) heart failure (principal); J96.01 Acute respiratory failure with hypoxia; I5A Non-ischemic myocardial injury (non-traumatic); J44.1 Chronic obstructive pulmonary disease with (acute) exacerbation; I11.0 Hypertensive heart disease with heart failure; I49.5 Sick sinus syndrome; I25.118 Atherosclerotic heart disease of native coronary artery with other forms of angina pectoris; L40.9 Psoriasis, unspecified; I44.1 Atrioventricular block, second degree; Z79.82 Long term (current) use of aspirin; Z95.5 Presence of coronary angioplasty implant and graft; Z86.73 Personal history of transient ischemic attack (TIA), and cerebral infarction without residual deficits
CPT/HCPCS: 33208; 71045; 80048; 80053; 82962; 83036; 83735; 83880; 84484; 85025; 85027; 87070; 87502; 87811; 93005; 93306; 94640; 97116; 97162; 97166; 97535; 99291; 99406; C1769; C1785; C1887; C1892; C1898; Q9967

== ENCOUNTER 2023-08-08 08:40 | Emergency (ER) | payer OTHER, SELFPAY ==
[2023-08-08 08:48] VITALS: BP 140/95; BMI 22.2
[2023-08-08 09:00] VITALS: BP 143/63
[2023-08-08 09:12] LABS: % Basophils 0.6 % (0-2); % Immature Granulocytes 0.4 % (0-0.5); % Lymphocytes 7.6 % (20.5-51.1); % Monocytes 9.6 % (1.7-9.3); % Neutrophils 69.8 % (42.2-75.2); Absolute Basophils 0.1 10^3/uL (0-0.2); Absolute Eosinophils 1.6 10^3/uL (0-0.7); Absolute Immature Granulocytes 0.1 10^3/uL (0-0.05); Absolute Monocytes 1.3 10^3/uL (0.1-0.6); Absolute Neutrophils 9.3 10^3/uL (1.4-6.5); Hematocrit 40.6 % (39.0-52.0); Hemoglobin 13.2 g/dL (13.0-18.0); Mean Corp Hgb Conc. 32.5 g/dL (33.0-37.0); Mean Corpuscular Volume 98.3 fL (80.0-94.0); Mean Platelet Volume 10.1 fL (7.4-10.4); Nucleated Red Blood Cells % 0 % (-); Platelet Count 210 10^3/uL (130-400); Red Blood Cell Count 4.13 10^6/uL (4.70-6.10); Red Cell Dist. Width 14.2 % (11.5-14.5); White Blood Cell Count 13.4 10^3/uL (4.8-10.8)
[2023-08-08 09:35] LABS: ALT (SGPT) 17 U/L (0-50); AST (SGOT) 28 U/L (17-59); Albumin 3.7 g/dl (3.5-5.0); Alkaline Phosphatase 87 U/L (38-126); Blood Urea Nitrogen 16 mg/dl (9-20); Calcium 8.8 mg/dl (8.4-10.2); Carbon Dioxide 29 mmol/L (22-30); Chloride 103 mmol/L (98-107); Estimated Creatinine Clearance 94 ml/min; Glucose 107 mg/dl (70-99); Potassium 4.1 mmol/L (3.5-5.1); Sodium 139 mmol/L (135-145); Total Bilirubin 0.7 mg/dl (0.2-1.3); Total Protein 7.1 g/dl (6.3-8.2); eGFR > 60.00
--- NOTE | 2023-08-08 09:35 | ED.GENMED ---
History of Present Illness
General
Chief Complaint: Breathing Problem
Source: patient, records, family and previous hospital records
Exam Limitations: none
Time Seen by Provider: 08/08/23 08:57
Nursing documentation reviewed up to this point in time: agreed with
Travel History
Have you had any contact with someone who has COVID-19?: No
Do you have any symptoms of coronavirus? Fever > 100 degrees, chills, cough, shortness of breath, sore throat, loss of taste or smell, muscle aches, or headache?: Yes
Symptoms:: SOB
History of Present Illness
History of Present Illness:
72-year-old male presents with shortness of breath subacute onset history of COPD continues to smoke not on home O2 use nebulizer this morning no fevers no hemoptysis does have mild leg edema does have history of CHF takes diuretics had a pacemaker
sees Dr. 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
Past History
Past History
ED Past Medical History: CAD, COPD, HTN, Seizures, Other (TIA) and Other (alchoholism has been to [facility] vent-dependent respiratory failure, pneumonia, cirrhosis, pancreatitis, seizures, cirrhosis,cardiomyopathy GI bleed, ambulatory
dysfunction, osteoarthritis, fracture ribs, eczema, impaired vision, anemia); Negative Hypercholesterolemia
ED Past Surgical History: Cardiac (Cardiac stent) and Other (tracheostomy, gastrostomy, bilateral hernia surgery, left middle finger surgery)
Social History
Tobacco: Smoker
Alcohol: Chronic alcoholic
Drug: None
Personal:
Living: with family (lives with daughter)
Employment: Retired
Family History
Family History: CAD
Review of Systems
Review of Systems
All Other Systems: Not applicable
Constitutional: Denies fever, fatigue or chills
Respiratory: Reports cough and trouble breathing
Cardiac: Reports no symptoms; Denies chest pain
ABD/GI: Reports no symptoms
: Reports no symptoms
Musculoskeletal: Reports no symptoms
Phy Exam
Physical Exam
Physical Exam:
Physical Exam
General: Chronically ill tachypneic
Neck: No JVD
Heart: Regular soft
Lungs: Expiratory wheeze
Abdomen: Not tender
Neuro: alert and oriented. no focal neurological deficits
Skin: no rash
Psychiatric: well kept. interactive and cooperative
Extremities: Trace edema
Scores
Heart Failure Risk
Heart Failure Risk Score: Not Applicable
Course
Orders/Labs/Results
Orders:
Orders
08/08/23 08:58
Electrocardiogram (*1) Urgent
Reason for Study: Chest Pain
Cardiac Monitoring- Treatment ONCE
IV Insert/Care/Rem.- Treatment PRN
CR Chest - 2 Views Urgent
Comment:
Reason For Exam: Shortness of breath
08/08/23 08:59
EKG- Treatment ONCE
08/08/23 09:01
Complete Blood Count/With Diff Urgent
Comprehensive Metabolic Panel Urgent
Troponin I Urgent
08/08/23 10:02
Dexamethasone Sod Phosphate [Decadron] 10 mg IV NOW STA
Ipratropium/Albuterol Sulfate [Duoneb] 3 ml INH R NOW STA
Abnormal Lab Results
08/08/23
09:01
WBC 13.4 H 10^3/uL
(4.8-10.8)
RBC 4.13 L 10^6/uL
(4.70-6.10)
MCV 98.3 H fL
(80.0-94.0)
MCH 32.0 H pg
(27.0-31.0)
MCHC 32.5 L g/dL
(33.0-37.0)
Abs Immat Gran (auto) 0.1 H 10^3/uL
(0-0.05)
Absolute Neuts (auto) 9.3 H 10^3/uL
(1.4-6.5)
Absolute Lymphs (auto) 1.0 L 10^3/uL
(1.2-3.4)
Absolute Monos (auto) 1.3 H 10^3/uL
(0.1-0.6)
Absolute Eos (auto) 1.6 H 10^3/uL
(0-0.7)
Lymphocytes % 7.6 L %
(20.5-51.1)
Monocytes % 9.6 H %
(1.7-9.3)
Eosinophils % 12.0 H %
(0-6)
Glucose 107 H mg/dl
(70-99)
08/08/23 09:01
08/08/23 09:01
Vital Signs
Initial and Last Documented VS:
Initial Vital Signs
Temp Pulse Resp BP Pulse Ox
98.8 F 95 24 140/95 96
08/08/23 08:48 08/08/23 08:48 08/08/23 08:48 08/08/23 08:48 08/08/23 08:48
Last Documented Vital Signs
Temp Pulse Resp BP Pulse Ox
98.8 F 85 23 141/71 98
08/08/23 08:48 08/08/23 10:15 08/08/23 10:15 08/08/23 10:00 08/08/23 10:15
MDM/Problems Addressed
Differential Diagnosis Includes:
COPD pneumonia heart failure less likely pneumothorax or PE
MDM/Problems Addressed:
Shortness of breath
Chronic conditions affecting care: HTN, Cardiomyopathy and COPD
Acute Exacerbation and/or Progression of Chronic Illness: COPD
*Radiology
Radiology exam reviewed: radiology read reviewed
*Pulse Oximetry
Patient hypoxic: yes
Comment: 91% RA
*EKG
Interpreted by ED Provider?: Yes
Interpretation: abnormal
Comparison EKG: no changes
Rate: normal
Rhythm: ventricular paced
[place]: normal axis
Ischemia: non-specific ST changes
*[employer] Interpretation
Rate: tachycardiac
Interpretation: abnormal
Heart Rate: 108
*Critical Care Note
Total Time (30-74mins, 75-104mins- exclusive of procedures): 14
Data Reviewed
Review of Other/Old Records Reveals: Labs, Records and Radiology Studies
Source: patient, records and family
Update Note
Update Note:
Update, chest x-ray noted labs noted, patient is borderline hypoxic placed on oxygen given nebs steroids see how he responds
11:25 AM patient feeling better pulse ox 91 to 92% on room air he does have home oxygen he would like to go home which is not unreasonable
ED Attending Note
-
Portions of this chart may have been created with voice recognition software.� Occasional wrong word or��sound alike� substitutions may have occurred due to the inherent limitations of voice recognition software.
Discharge Plan
Departure
Patient Disposition: Home (Routine Discharge)
Date of Disposition: 08/08/23
Time of Disposition: 11:27
Patient with high blood pressure during this ER visit?: No
Condition: Good
Discharge Problem:
Chronic obstructive pulmonary disease
Instructions: COPD Exacerbation, Adult ED
Prescriptions:
New
doxycycline hyclate 100 mg capsule
100 mg PO BID Qty: 14 0RF
methylprednisolone [Medrol (Deshawn)] 4 mg tablets,dose pack
See Rx Instructions .ROUTE .COMPLEX Qty: 21 0RF
Rx Instructions:
for 6 days
ipratropium-albuterol 0.5 mg-3 mg(2.5 mg base)/3 mL solution for nebulization
3 ml inhalation Q4H PRN (Reason: shortness of breath) Qty: 180 0RF
No Action
carvedilol 6.25 mg tablet
6.25 mg PO BID
atorvastatin 20 mg tablet
20 mg PO DAILY
ipratropium-albuterol 0.5 mg-3 mg(2.5 mg base)/3 mL solution for nebulization
3 ml INHALATION R BID
cetirizine [Zyrtec] 10 mg Tablet
10 mg PO HS
fexofenadine 180 mg tablet
180 mg PO DAILY
aspirin 81 mg Tablet,Delayed Release (Dr/Ec)
81 mg PO DAILY
lorazepam 1 mg tablet
1 mg PO BID PRN (Reason: anxiety)
Patient Comments:
08/08/2023, last filled on 06/22/2023 for 60 tablets per PDMP.
fluticasone furoate-vilanterol [Breo Ellipta] 100-25 mcg/dose blister with device
1 inh INHALATION R QPM
furosemide 40 mg Tablet
40 mg PO DAILY Qty: 30 3RF
clobetasol 0.05 % Cream
1 applic TOPICAL BID PRN (Reason: B/L hands, arms, legs, feet)
Theragen Tablet
1 tab PO DAILY
ascorbic acid (vitamin C) [Vitamin C] 500 mg Tablet
500 mg PO DAILY
ibuprofen 200 mg Tablet
400 mg PO BIDPRN PRN (Reason: mild pain)
albuterol sulfate 90 mcg/actuation Hfa Aerosol Inhaler
2 puff INHALATION R Q6HPRN PRN (Reason: sob/wheezing)
Systane (PF) 0.4-0.3 % Dropperette
1 drp BOTH EYES BIDPRN PRN (Reason: dry eyes)
cholecalciferol (vitamin D3) 25 mcg (1,000 unit) Tablet
25 mcg PO DAILY
Skyrizi 150 mg/mL Pen Injector
150 mg SC Q90D
Referrals:
Gabbi Sánchez DO [Family Provider] -
Interventions
Interventions:
*Risk Screen - Suicide Last Done: 08/08/23 08:48
*General Assessment Last Done: 08/08/23 08:48
*Neglect/Abuse Screening Last Done: 08/08/23 08:48
ED- Fall Risk Assessment Last Done: 08/08/23 09:36
*ED COVID-19 Vaccine History Last Done: 08/08/23 08:48
ED- Cardiac Assessment Last Done: 08/08/23 09:36
ED- Pulmonary Assessment Last Done: 08/08/23 09:36
Discharge Date and Time
Print Language: GEORGIAN
[2023-08-08 09:37] LABS: Troponin I < 0.012 ng/ml
--- NOTE | 2023-08-08 09:43 | EDRN ---
Pt placed on oxygen at 2lpm for POX 91-92% at this time.
[2023-08-08 10:00] VITALS: BP 141/71
[2023-08-08] MEDS: DECADRON 10 MG IV (10:27)
[2023-08-08] MEDS: DUONEB 3 ML INH (10:27)
[2023-08-08 11:00] VITALS: BP 131/73
== END 2023-08-08 11:45 | disposition home or self-care (01) ==
LOC: EMR 08:40
PROVIDERS: EMERGENCY PHYSICIAN Emergency Medicine; FAMILY PHYSICIAN Family Medicine
DX: J44.9 Chronic obstructive pulmonary disease, unspecified (principal); F17.200 Nicotine dependence, unspecified, uncomplicated; I25.10 Atherosclerotic heart disease of native coronary artery without angina pectoris; I42.9 Cardiomyopathy, unspecified; I10 Essential (primary) hypertension
CPT/HCPCS: 99285; 96374; 94640; 71046; 80053; 84484; 85025; 93005

== ENCOUNTER → 2023-10-27 12:56 | Outpatient (REF) | payer OTHER, SELFPAY | LOC: HWRCS 12:56 | PROVIDERS: ATTENDING PHYSICIAN Internal Medicine Cardiovascular Disease; FAMILY PHYSICIAN Family Medicine | DX: I50.9 Heart failure, unspecified (principal) | CPT/HCPCS: 93306 ==

== ENCOUNTER 2024-05-25 14:49 | Emergency (ER) | payer OTHER, SELFPAY ==
[2024-05-25 14:54] VITALS: BP 129/76
[2024-05-25 15:32] VITALS: BMI 20.2
--- NOTE | 2024-05-25 15:49 | ED.GENMED ---
History of Present Illness
General
Chief Complaint: Head Injury
Source: patient and family
Exam Limitations: none
Time Seen by Provider: 05/25/24 15:22
Nursing documentation reviewed up to this point in time: agreed with
History of Present Illness
History of Present Illness:
Patient is a 73 year old male who presents w/ family for evaluation of head injury after mechanical fall yesterday. Patient was transferring from his wheel chair into a wheelchair van yesterday when his footrest was not in place causing him to fall
striking the front of his forehead on the pavement. He did sustain a mild laceration to his right brow. Patient states they cleaned the wound thoroughly and placed Steri-Strips on the wound. Patient denies any loss of consciousness. This fall
was witnessed by family and wheelchair van staff. He was then taken to his scheduled appointment to have his tracheostomy removed.
Patient denies any headache, nausea/vomiting, numbness/tingling. No dizziness, lightheadedness, or visual changes. No back pain or neck pain. Patient denies any pain in his extremities.
Patient is on Eliquis although has not taken over the past 2 days as he 'ran out '. 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
Past History
Past History
ED Past Medical History: CAD, COPD, HTN, Seizures, Other (TIA) and Other (alchoholism has been to [facility] vent-dependent respiratory failure, pneumonia, cirrhosis, pancreatitis, seizures, cirrhosis,cardiomyopathy GI bleed, ambulatory
dysfunction, osteoarthritis, fracture ribs, eczema, impaired vision, anemia); Negative Hypercholesterolemia
ED Past Surgical History: Cardiac (Cardiac stent) and Other (tracheostomy, gastrostomy, bilateral hernia surgery, left middle finger surgery)
Social History
Tobacco: Smoker
Alcohol: Chronic alcoholic
Drug: None
Personal:
Living: with family (lives with daughter)
Employment: Retired
Family History
Family History: CAD
Review of Systems
Review of Systems
Allergies reviewed?: Yes
All Other Systems: ROS reviewed and negative except as documented in HPI and ROS
Phy Exam
Physical Exam
Physical Exam:
GENERAL: No acute distress
HEENT: Approximately 3 cm linear laceration just above right brow, not actively bleeding, extraocular muscles intact, no signs of entrapment, dentition intact, no other obvious trauma
NECK: no midline tenderness, normal range of motion, no other obvious trauma
BACK: no midline tenderness, no other obvious trauma,
CHEST: no tenderness, no flail segment, no subcutaneous emphysema, no other obvious trauma
LUNGS: clear to auscultation bilaterally
CARDIOVASCULAR: regular rate and rhythm
ABDOMEN: soft, non-tender, no masses, no other obvious trauma
PELVIS: stable, no obvious injury
EXTREMITIES: moving all extremities, bilateral upper and lower extremities atraumatic and nontender with full range of motion, distal pulses intact, no other obvious trauma
NEUROLOGIC: awake, alert x 3, no focal deficits
Course
Orders/Labs/Results
Orders:
Orders
05/25/24 14:[address] [CT Head W/o Iv Contrast] Urgent
Comment:
Reason For Exam: head injury +thinners
05/25/24 15:27
CT Cervical Spine W/o Iv Contr Urgent
Comment:
Reason For Exam: fall with headstrike
05/25/24 15:48
pacemaker [Interrogate Pacemaker- Treatment] ONCE
Comment: medtronic
Tetanus/Diphth/Acelpertussis [Adacel] 0.5 ml IM .ONCE ONE
Vital Signs
Initial and Last Documented VS:
Initial Vital Signs
Temp Pulse Resp BP Pulse Ox
98 F 84 16 129/76 99
05/25/24 14:54 05/25/24 14:54 05/25/24 14:54 05/25/24 14:54 05/25/24 14:54
Last Documented Vital Signs
Temp Pulse Resp BP Pulse Ox
98 F 84 16 129/76 99
05/25/24 14:54 05/25/24 14:54 05/25/24 14:54 05/25/24 14:54 05/25/24 14:54
Procedures
Laceration Closure
Right Eye brow:
Status of Wound: clean
Size of Wound in cm: 3
Description of Wound Edges: sharp
Preparation: cleaned with saline and cleaned with Betadine
Anesthesia: 1% Lidocaine with epi
Revision/Debridement: routine- no revision
Wound exploration: explored to base- no FB
Type of Closure: single layer closure and interrupted sutures (4)
Skin Closure Material: 5-0 nylon
Number of sutures: 4
MDM/Problems Addressed
Differential Diagnosis Includes:
Not limited to: laceration, contusion, concussion, cervical spine fracture, intracerebral hemorrhage, etc.
MDM/Problems Addressed:
73-year-old male with history as documented presenting after witnessed mechanical fall yesterday transferring from wheelchair with head strike and laceration. Denies any loss of consciousness, headache, vomiting, neck pain, numbness/tingling. No
pain in extremities. Vital stable. Physical exam as above. Laceration to right brow noted, otherwise no evidence of head or neck trauma. No evidence of trauma to bilateral upper or lower extremities. Abdomen soft and nontender. CT
head/cervical spine ordered in triage. Ultimately�feel confident that this was a mechanical fall. However�will obtain maker interrogation. Given laceration was sustained greater than 24 hours ago�did discuss increased risk of infection with
patient and family. After shared decision making�will proceed with primary closure of wound. Will update tetanus. Anticipate discharge.
Update: CT head/cervical spine without any evidence of acute abnormalities. Wound was anesthetized with 1% lidocaine with epinephrine and thoroughly irrigated with normal saline. Wound was cleansed with Betadine and closed with 4 simple and 5-0
nylon sutures with great skin approximation and hemostasis obtained. Feel patient stable for discharge home. Discussed wound care instructions at length and instructions for suture removal in 5 to 7 days. Pacemaker interrogation report reviewed
without any signs of arrhythmia. Discussed importance of restarting Eliquis which was able to obtain on their way home from ED today.
Chronic conditions affecting care:
Atrial fibrillation on Eliquis
Acute Exacerbation and/or Progression of Chronic Illness:
N/A
*Radiology
Radiology exam reviewed: radiology read reviewed
*Pulse Oximetry
Patient hypoxic: no
*EKG
Interpreted by ED Provider?: NA
*Estimator Printing Plate Making Interpretation
Rate: Estimator Printing Plate Making- N/A
*Critical Care Note
Total Time (30-74mins, 75-104mins- exclusive of procedures): Not Applicable
ED Attending Note
-
Portions of this chart may have been created with voice recognition software.� Occasional wrong word or��sound alike� substitutions may have occurred due to the inherent limitations of voice recognition software.
Discharge Plan
Departure
Patient Disposition: Home (Routine Discharge)
Date of Disposition: 05/25/24
Time of Disposition: 17:10
Patient with high blood pressure during this ER visit?: Yes
Condition: Good
Covid-19: Not Applicable
Discharge Problem:
Fall, Laceration, Head injury
Instructions: Head Injury in Adults (DC), Laceration Repair With Stitches (DC), BLOOD PRESSURE
Prescriptions:
No Action
carvedilol 6.25 mg tablet
6.25 mg PO BID
atorvastatin 20 mg tablet
20 mg PO DAILY
ipratropium-albuterol 0.5 mg-3 mg(2.5 mg base)/3 mL solution for nebulization
3 ml INHALATION R BID
cetirizine [Zyrtec] 10 mg Tablet
10 mg PO HS
fexofenadine 180 mg tablet
180 mg PO DAILY
aspirin 81 mg Tablet,Delayed Release (Dr/Ec)
81 mg PO DAILY
lorazepam 1 mg tablet
1 mg PO BID PRN (Reason: anxiety)
Patient Comments:
08/08/2023, last filled on 06/22/2023 for 60 tablets per PDMP.
fluticasone furoate-vilanterol [Breo Ellipta] 100-25 mcg/dose blister with device
1 inh INHALATION R QPM
furosemide 40 mg Tablet
40 mg PO DAILY Qty: 30 3RF
clobetasol 0.05 % Cream
1 applic TOPICAL BID PRN (Reason: B/L hands, arms, legs, feet)
Theragen Tablet
1 tab PO DAILY
ascorbic acid (vitamin C) [Vitamin C] 500 mg Tablet
500 mg PO DAILY
ibuprofen 200 mg Tablet
400 mg PO BIDPRN PRN (Reason: mild pain)
albuterol sulfate 90 mcg/actuation Hfa Aerosol Inhaler
2 puff INHALATION R Q6HPRN PRN (Reason: sob/wheezing)
Systane (PF) 0.4-0.3 % Dropperette
1 drp BOTH EYES BIDPRN PRN (Reason: dry eyes)
cholecalciferol (vitamin D3) 25 mcg (1,000 unit) Tablet
25 mcg PO DAILY
Skyrizi 150 mg/mL Pen Injector
150 mg SC Q90D
doxycycline hyclate 100 mg capsule
100 mg PO BID Qty: 14 0RF
methylprednisolone [Medrol (Deshawn)] 4 mg tablets,dose pack
See Rx Instructions .ROUTE .COMPLEX Qty: 21 0RF
Rx Instructions:
for 6 days
ipratropium-albuterol 0.5 mg-3 mg(2.5 mg base)/3 mL solution for nebulization
3 ml inhalation Q4H PRN (Reason: shortness of breath) Qty: 180 0RF
Referrals:
Gabbi Sánchez DO [Family Provider] - Follow up in 5-7 days
Activity Restrictions/Additional Instructions:
Return to the emergency department with any severe headache, intractable nausea/vomiting, changes in vision, changes in mental status, or any signs of infection of wound
-Your CT imaging of your head and neck showed no acute abnormalities today.
-As discussed�we did interrogate your pacemaker and we will contact you if there are any abnormalities seen.
-As discussed�it is important that you restart your Eliquis as prescribed by your doctor
-Your wound was closed with 4 stitches today. You should keep wound clean and dry monitor closely for signs of infection. The stitches will need to be removed in 5 to 7 days. This can be done at your primary care doctor, urgent care, or emergency
department
Monitor your symptoms closely and return to the emergency department with any acute worsening/new symptoms or any other concerns
Interventions
Interventions:
*Risk Screen - Suicide Last Done: 05/25/24 14:57
*General Assessment Last Done: 05/25/24 15:30
*Neglect/Abuse Screening Last Done: 05/25/24 14:57
*ED- Fall Risk Assessment Last Done: 05/25/24 15:30
*ED COVID-19 Vaccine History Last Done: 05/25/24 15:30
*Nursing Disposition Last Done: 05/25/24 17:36
ED- Neurological Assessment Last Done: 05/25/24 15:33
ED-Skin Assessment Last Done: 05/25/24 15:33
Discharge Date and Time
Discharge Date/Time: 05/25/24 17:40
Print Language: STATELESS
[2024-05-25] MEDS: ADACEL 0.5 ML IM (16:55)
== END 2024-05-25 17:40 | disposition home or self-care (01) ==
LOC: EMR 14:49
PROVIDERS: EMERGENCY PHYSICIAN Emergency Medicine; FAMILY PHYSICIAN Family Medicine
DX: S09.90XA Unspecified injury of head, initial encounter (principal); S01.111A Laceration without foreign body of right eyelid and periocular area, initial encounter; W05.0XXA Fall from non-moving wheelchair, initial encounter; Z23 Encounter for immunization; T45.516A Underdosing of anticoagulants, initial encounter; Z91.148 Patient's other noncompliance with medication regimen for other reason; I25.10 Atherosclerotic heart disease of native coronary artery without angina pectoris; I10 Essential (primary) hypertension; K74.60 Unspecified cirrhosis of liver; I48.91 Unspecified atrial fibrillation; I42.9 Cardiomyopathy, unspecified; R56.9 Unspecified convulsions; M19.90 Unspecified osteoarthritis, unspecified site; F32.A Depression, unspecified; J44.9 Chronic obstructive pulmonary disease, unspecified; F17.210 Nicotine dependence, cigarettes, uncomplicated; Z79.01 Long term (current) use of anticoagulants; Z95.5 Presence of coronary angioplasty implant and graft; Z95.0 Presence of cardiac pacemaker; Z86.73 Personal history of transient ischemic attack (TIA), and cerebral infarction without residual deficits
CPT/HCPCS: 99285; 12013; 93288; 90471; 70450; 72125; 90715

== ENCOUNTER 2024-09-29 06:27 | Day surgery (SDC) | payer OTHER, SELFPAY ==
[2024-09-29] VITALS (7 sets, daily range): BP systolic 107–135; BP diastolic 55–66
[2024-09-29] MEDS: NORMOSOL-R/PLASMALYTE-A 1000 IV (08:36)
[2024-09-29] MEDS: DILAUDID 0.25 MG IV (11:31)
== END 2024-09-29 12:35 | disposition home or self-care (01) ==
LOC: SDS 06:27
PROVIDERS: ATTENDING PHYSICIAN Otolaryngology
DX: J34.2 Deviated nasal septum (principal); J34.3 Hypertrophy of nasal turbinates; M95.0 Acquired deformity of nose; H04.551 Acquired stenosis of right nasolacrimal duct
CPT/HCPCS: 30140; 30520